=== PATIENT | male | born 1955 | race Caucasian/White ===

== ENCOUNTER 2022-07-18 12:36 | Inpatient (IN) ==
--- NOTE | 2022-07-18 12:57 | Emergency Department Note ---
Impression & Plan GI bleed, Tobacco use, Abdominal pain, Anemia ED Provider Note NAME: MONIK LEON AGE: 66 SEX: M : 1955 ARRIVES VIA: Ambulance INFORMANT: Patient, ED PROVIDER(S): Yonis Serrano MD CHIEF COMPLAINT: Shortness of breath, abdominal pain MEDICAL DECISION MAKING: Patient presented due to concern for dark stools weakness abdominal pain and shortness of breath. Blood work is obtained along with an EKG troponin chest x-ray CT of the abdomen pelvis [place] breathing treatment. Patient's blood work showed a normal white count mild anemia with a hemoglobin of 12. The patient's platelet count is unremarkable. INR unremarkable. Kidney function is unremarkable. The patient does have mild elevation in bilirubin at 1.1. Lipase is normal. COVID-negative. Chest x-ray is negative. CT abdomen pelvis shows mild bladder wall thickening. Patient did have a urinalysis that was pending. No diverticulitis. The patient does have some bladder stones. Patient does have an infrarenal abdominal aortic aneurysm approximate 4.2 cm. Patient's stool is heme positive. Given the patient's GI bleeding with associated poor outpatient care drinking history as well as smoking use do believe the patient would benefit from inpatient treatment at this time. I did speak with the on-call medicine service Mitzi Razo PA-C and the patient was admitted by Dr. Mccormick Prior /Outside records reviewed: None Differential diagnosis: Reactive airway disease, pneumonia, pneumothorax, COPD, CHF, infections, cardiac ischemia, pulmonary embolism, musculoskeletal, gastrointestinal, as well as other pathologies. Diverticulosis, AVM, coagulopathy, colitis, inflammatory bowel disease, malignancy, Tomeka-Tse tear, esophagitis, peptic ulcer disease, variceal bleed, gastritis, epistaxis, fissure, hemorrhoids, as well as other pathologies. Diagnostics, as interpreted by me: ECG: None Cardiac monitoring: An order was placed for continuous cardiac monitoring. The monitor shows a rate of 77 with sinus rhythm. Patient was placed on pulse oximetry Medical decision rules: None Imaging studies: See below HPI: Patient presents with the above symptoms and states he has had progressively worsening shortness of breath with associated productive cough. Patient does smoke a cigar in the morning and evening. The patient has not also noticed weight loss over the last several months approximately 30 pounds. The patient has no dark stools. The patient states that he had a prior colonoscopy about 15 years ago and did have polyps removed at that time. The patient does not take any blood thinning medications. Patient does drink several days a week and when he does he drinks maybe 3-4 drinks. Patient denies any chest pains. Patient does not have any prior history of IBD or diverticulitis. Patient den ies any associated nausea or vomiting. Patient does not take anything for symptoms at home. Patient denies any additional exacerbating remitting factors PAST MEDICAL HISTORY: See Below PAST SURGICAL HISTORY: See Below SOCIAL HISTORY: See Below HOME MEDICATIONS: See Below ALLERGIES: See Below VITALS: See Below PHYSICAL EXAMINATION: GENERAL: NAD, wearing a mask, non-toxic. Thin in appearance. EYE EXAM: Normal conjunctiva. PERRL, no anisocoria and EOM's grossly intact w/o pain. NECK: Supple, no nuchal rigidity, no adenopathy, non-tender. No signs of meningismus. FROM of the neck with good chin to chest and neck extension. No stridor. LUNGS: Clear to auscultation. Normal chest wall mechanics. HEART: NSR, no MRG. ABDOMEN: Abdomen soft, epigastric pain, no lower abdominal pain, normo-active bowel sounds, no masses, no rebound or guarding. BACK: No CVA TTP. SKIN: No rashes and no bruising. Rectal exam, dark stool, heme positive. No bright red blood per UPPER EXTREMITIES: Upper extremities are grossly normal. LOWER EXTREMITIES: Grossly normal, no edema. Negative Homans' sign bilaterally. NEURO EXAM: A&O x3, cranial nerves II-XII grossly intact, normal speech, moves all 4 extremities. Past Med/Surg History Medical History (Updated 07/19/22 @ 23:03 by Yonis Serrano MD) Tobacco use Vitamin D deficiency Surgical History (Updated 07/18/22 @ 17:35 by Aishwarya Razo PA-C) H/O: vasectomy History of colonoscopy History of elbow surgery Family History (Updated 07/18/22 @ 17:37 by Aishwarya Razo PA-C) Brother Heart disease Father Heart disease Other Breast cancer Social History (Updated 07/18/22 @ 17:35 by Aishwarya Razo PA-C) Smoking Status: Current some day smoker Tobacco Type: Cigars Cigarettes Per Day: 1-2 a day; Smoking End Date: smoked 1.5ppd x 40 years. Quit 10 years ago. Current smokes 1-2 cigars day; Second Hand Exposure: No; Do You Dip or Chew Tobacco: No; Hx Alcohol Use: Yes (2-3) Alcohol type: beer Alcohol Intake Frequency: 2-3 x/Week Hx Substance Use: Yes Non-Prescribed Medications: Marijuana Preferred Language: Argentine Communication Ability: Effective Packer And Carry Out Required: No Beliefs That Will Affect Care: None Current Living Situation: Alone Feels Safe at Home: Yes Safety Concerns: Feels Safe At This Time Assistive Devices: Cane and Glasses Allergies Allergies Allergy/AdvReac Type Severity Reaction Status Date / Time No Known Allergies Allergy Verified 07/18/22 16:05 Home Meds Home Medications Medication Instructions Recorded Confirmed cholecalciferol (vitamin D3) 25 25 mcg PO DAILY 07/18/22 07/18/22 mcg (1,000 unit) capsule (Vitamin D3) Results & Data (ED) Vital Signs Vital Signs - 24 hr 07/18/22 12:51 Temperature 37.2 C Temperature Source Oral Pulse Rate 76 Respiratory Rate 20 Respiratory Effort / Characteristics Non-Labored Respiratory Depth Normal Blood Pressure 151/89 H Blood Pressure Mean 109 Pulse Oximetry 99 Oxygen Delivery Method Room Air Sepsis Recent Fever Within 48 Hours No Sepsis New/Unexplained Change in Mental Status No Sepsis Action Taken by Nursing No Action Required Home Medications Current Medication List: was personally reviewed by me Laboratory Data Attestation: I reviewed the patient's lab results. 07/18/22 13:00 07/18/22 13:00 Lab Results 07/18/22 07/18/22 07/18/22 Range/Units 13:00 13:00 13:00 WBC 5.88 (4.8-10.8) K/ul RBC 3.73 L (4.63-6.08) M/uL Hgb 12.2 L (14.0-18.0) g/dl Hct 34.8 L (40.1-51.0) % MCV 93.3 (80.0-100.0) fL MCH 32.7 (25.0-34.0) pg MCHC 35.1 (32.0-36.0) g/dL RDW Std Deviation 52.8 H (36.4-46.3) fL RDW Coeff of Breonna 15.4 H (11.5-14.5) % Plt Count 246 (130-400) K/uL MPV 10.1 (9.4-12.4) fL Immature Gran % (Auto) 0.7 % Neut % (Auto) 75.2 % Lymph % (Auto) 13.6 % [place] % (Auto) 10.0 % Eos % (Auto) 0.0 % Baso % (Auto) 0.5 % Neut # (Auto) 4.42 (1.4-6.5) K/uL Lymph # (Auto) 0.80 L (1.2-3.4) K/uL [place] # (Auto) 0.59 (0.24-0.82) K/uL Eos # (Auto) 0.00 (0-0.50) K/uL Baso # (Auto) 0.03 (0-0.2) K/uL Immature Gran # (Auto) 0.04 H (0.00-0.02) K/uL PT 10.6 (9.0-12.0) Seconds INR 1.0 (0.9-1.1) APTT 31.1 H (21.0-31.0) Seconds PTT Ratio 1.1 Sodium 136 (136-145) mmol/L Potassium 3.3 L (3.5-5.1) mmol/L Chloride 94 L (98-107) mmol/L Carbon Dioxide 27 (21-32) mmol/L Anion Gap 15 H (3-11) BUN 4 L (6-23) mg/dl Creatinine 0.51 L (0.6-1.4) mg/dl Est Cr Clr Drug Dosing Not Reportable Est GFR ( Amer) 128.9 ml/min Est GFR (Non-Af Amer) 111.2 ml/min BUN/Creatinine Ratio 7.8 L (10-20) Glucose 156 H (70-99(Fasting)) mg/dl Calcium 8.7 (8.5-10.1) mg/dl Magnesium (1.7-2.4) mg/dl Iron (35-175) mcg/dl Transferrin (200-360) mg/dl Ferritin (8-388) ng/ml Total Bilirubin 1.1 H (0.2-1.0) mg/dl AST 29 (13-39) U/L ALT 19 (7-52) U/L Alkaline Phosphatase 87 (34-104) U/L Troponin I High Sens 7.8 (0-20) pg/ml Total Protein 6.5 (6.0-8.3) gm/dl Albumin 3.2 L (3.4-5.0) gm/dl Globulin 3.3 (2.5-4.0) gm/dl Albumin/Globulin Ratio 1.0 (0.9-2) Lipase 5 L (11-82) U/L Prostate Specific Ag (0-4) ng/ml Free PSA (0-2.0) ng/ml % Free PSA % Vitamin B12 (180-914) pg/ml Folate (>5.38) ng/ml Urine Color Urine Appearance (Clear) Urine pH (4.5-7.5) Ur Specific [place] (1.000-1.030) Urine Protein (Negative) Urine Glucose (UA) (Negative) Urine Ketones (Negative) Urine Blood (Negative) Urine Nitrite (Negative) Urine Bilirubin (Negative) Urine Urobilinogen (Negative) Ur Leukocyte Esterase (Negative) Urine WBC (Auto) (0-5) /hpf Urine RBC (Auto) (0-4) /hpf U Hyaline Cast (Auto) (0-5) /lpf U Epithel Cells (Auto) (0-5) /lpf Urine Bacteria (Auto) (Negative) Urine Mucus (None Prsent) Urine Yeast SARS-CoV-2, RNA, NAAT (NEGATIVE) 07/18/22 07/18/22 07/18/22 Range/Units 13:00 13:00 13:00 WBC (4.8-10.8) K/ul RBC (4.63-6.08) M/uL Hgb (14.0-18.0) g/dl Hct (40.1-51.0) % MCV (80.0-100.0) fL MCH (25.0-34.0) pg MCHC (32.0-36.0) g/dL RDW Std Deviation (36.4-46.3) fL RDW Coeff of Breonna (11.5-14.5) % Plt Count (130-400) K/uL MPV (9.4-12.4) fL Immature Gran % (Auto) % Neut % (Auto) % Lymph % (Auto) % [place] % (Auto) % Eos % (Auto) % Baso % (Auto) % Neut # (Auto) (1.4-6.5) K/uL Lymph # (Auto) (1.2-3.4) K/uL [place] # (Auto) (0.24-0.82) K/uL Eos # (Auto) (0-0.50) K/uL Baso # (Auto) (0-0.2) K/uL Immature Gran # (Auto) (0.00-0.02) K/uL PT (9.0-12.0) Seconds INR (0.9-1.1) APTT (21.0-31.0) Seconds PTT Ratio Sodium (136-145) mmol/L Potassium (3.5-5.1) mmol/L Chloride (98-107) mmol/L Carbon Dioxide (21-32) mmol/L Anion Gap (3-11) BUN (6-23) mg/dl Creatinine (0.6-1.4) mg/dl Est Cr Clr Drug Dosing Est GFR ( Amer) ml/min Est GFR (Non-Af Amer) ml/min BUN/Creatinine Ratio (10-20) Glucose (70-99(Fasting)) mg/dl Calcium (8.5-10.1) mg/dl Magnesium 1.5 L (1.7-2.4) mg/dl Iron 142 (35-175) mcg/dl Transferrin 142 L (200-360) mg/dl Ferritin 130.5 (8-388) ng/ml Total Bilirubin (0.2-1.0) mg/dl AST (13-39) U/L ALT (7-52) U/L Alkaline Phosphatase (34-104) U/L Troponin I High Sens (0-20) pg/ml Total Protein (6.0-8.3) gm/dl Albumin (3.4-5.0) gm/dl Globulin (2.5-4.0) gm/dl Albumin/Globulin Ratio (0.9-2) Lipase (11-82) U/L Prostate Specific Ag (0-4) ng/ml Free PSA (0-2.0) ng/ml % Free PSA % Vitamin B12 655 (180-914) pg/ml Folate 4.01 L (>5.38) ng/ml Urine Color Urine Appearance (Clear) Urine pH (4.5-7.5) Ur Specific [place] (1.000-1.030) Urine Protein (Negative) Urine Glucose (UA) (Negative) Urine Ketones (Negative) Urine Blood (Negative) Urine Nitrite (Negative) Urine Bilirubin (Negative) Urine Urobilinogen (Negative) Ur Leukocyte Esterase (Negative) Urine WBC (Auto) (0-5) /hpf Urine RBC (Auto) (0-4) /hpf U Hyaline Cast (Auto) (0-5) /lpf U Epithel Cells (Auto) (0-5) /lpf Urine Bacteria (Auto) (Negative) Urine Mucus (None Prsent) Urine Yeast SARS-CoV-2, RNA, NAAT (NEGATIVE) 07/18/22 07/18/22 07/18/22 Range/Units 13:45 14:13 16:00 WBC (4.8-10.8) K/ul RBC (4.63-6.08) M/uL Hgb (14.0-18.0) g/dl Hct (40.1-51.0) % MCV (80.0-100.0) fL MCH (25.0-34.0) pg MCHC (32.0-36.0) g/dL RDW Std Deviation (36.4-46.3) fL RDW Coeff of Breonna (11.5-14.5) % Plt Count (130-400) K/uL MPV (9.4-12.4) fL Immature Gran % (Auto) % Neut % (Auto) % Lymph % (Auto) % [place] % (Auto) % Eos % (Auto) % Baso % (Auto) % Neut # (Auto) (1.4-6.5) K/uL Lymph # (Auto) (1.2-3.4) K/uL [place] # (Auto) (0.24-0.82) K/uL Eos # (Auto) (0-0.50) K/uL Baso # (Auto) (0-0.2) K/uL Immature Gran # (Auto) (0.00-0.02) K/uL PT (9.0-12.0) Seconds INR (0.9-1.1) APTT (21.0-31.0) Seconds PTT Ratio Sodium (136-145) mmol/L Potassium (3.5-5.1) mmol/L Chloride (98-107) mmol/L Carbon Dioxide (21-32) mmol/L Anion Gap (3-11) BUN (6-23) mg/dl Creatinine (0.6-1.4) mg/dl Est Cr Clr Drug Dosing Est GFR ( Amer) ml/min Est GFR (Non-Af Amer) ml/min BUN/Creatinine Ratio (10-20) Glucose (70-99(Fasting)) mg/dl Calcium (8.5-10.1) mg/dl Magnesium (1.7-2.4) mg/dl Iron (35-175) mcg/dl Transferrin (200-360) mg/dl Ferritin (8-388) ng/ml Total Bilirubin (0.2-1.0) mg/dl AST (13-39) U/L ALT (7-52) U/L Alkaline Phosphatase (34-104) U/L Troponin I High Sens (0-20) pg/ml Total Protein (6.0-8.3) gm/dl Albumin (3.4-5.0) gm/dl Globulin (2.5-4.0) gm/dl Albumin/Globulin Ratio (0.9-2) Lipase (11-82) U/L Prostate Specific Ag 0.489 (0-4) ng/ml Free PSA 0.08 (0-2.0) ng/ml % Free PSA 16.4 % Vitamin B12 (180-914) pg/ml Folate (>5.38) ng/ml Urine Color Yellow Urine Appearance Cloudy A (Clear) Urine pH 6.5 (4.5-7.5) Ur Specific [place] > 1.045 H (1.000-1.030) Urine Protein 1+ H (Negative) Urine Glucose (UA) Negative (Negative) Urine Ketones 2+ H (Negative) Urine Blood 1+ H (Negative) Urine Nitrite Negative (Negative) Urine Bilirubin Negative (Negative) Urine Urobilinogen Negative (Negative) Ur Leukocyte Esterase 1+ H (Negative) Urine WBC (Auto) >30 H (0-5) /hpf Urine RBC (Auto) 5-10 H (0-4) /hpf U Hyaline Cast (Auto) 10-30 H (0-5) /lpf U Epithel Cells (Auto) 10-20 H (0-5) /lpf Urine Bacteria (Auto) 4+ H (Negative) Urine Mucus Present A (None Prsent) Urine Yeast Not Reportable SARS-CoV-2, RNA, NAAT NEGATIVE (NEGATIVE) Administered Medications Folic Acid (Folic Acid 1 Mg Tab) 1 mg PO QAM [facility] Stop: 08/18/22 08:59 Last Admin: 07/19/22 07:44 Dose: 1 mg Documented By: AMINA Pantoprazole Sodium 40 mg/ (Dextrose) 100 mls @ 20 mls/hr IV Q5H [facility] Stop: 08/17/22 19:34 Last Admin: 07/19/22 21:58 Dose: 8 mg/hr, 20 mls/hr Documented By: [id number] Infusion: 07/19/22 21:22 Dose: 8 mg/hr, 20 mls/hr Documented By: [id number] Admin: 07/19/22 16:22 Dose: 8 mg/hr, 20 mls/hr Documented By: [id number] Infusion: 07/19/22 15:59 Dose: 8 mg/hr, 20 mls/hr Documented By: [id number] Admin: 07/19/22 10:59 Dose: 8 mg/hr, 20 mls/hr Documented By: Infusion: 07/19/22 10:57 Dose: 0 mg/hr, 0 mls/hr Documented By: Admin: 07/19/22 05:57 Dose: 8 mg/hr, 20 mls/hr Documented By: Infusion: 07/19/22 05:56 Dose: 0 mg/hr, 0 mls/hr Documented By: Admin: 07/19/22 01:05 Dose: 8 mg/hr, 20 mls/hr Documented By: Infusion: 07/19/22 01:05 Dose: 8 mg/hr, 20 mls/hr Documented By: Admin: 07/18/22 20:34 Dose: 8 mg/hr, 20 mls/hr Documented By: TREMAINE Ciprofloxacin (Cipro / D5w) 400 mg in 200 mls @ 100 mls/hr IV Q12H [facility]; Protocol Stop: 07/28/22 15:59 Last Infusion: 07/19/22 19:04 Dose: 0 mls/hr Documented By: [id number] Admin: 07/19/22 16:43 Dose: 100 mls/hr Documented By: [id number] Metronidazole (Flagyl) 500 mg in 100 mls @ 100 mls/hr IV Q8 [facility]; Protocol Stop: 07/29/22 13:59 Last Admin: 07/19/22 22:05 Dose: 100 mls/hr Documented By: [id number] Infusion: 07/19/22 14:47 Dose: 0 mls/hr Documented By: Admin: 07/19/22 13:33 Dose: 100 mls/hr Documented By: AMINA Vitamin D (Cholecalciferol 1,000 Units 25 Mcg Tab) 1,000 units PO DAILY [facility] Stop: 08/18/22 08:59 Last Admin: 07/19/22 07:44 Dose: 1,000 units Documented By: AMINA Discontinued Medications Albuterol (Albut/Ipratrop 3mg/0.5mg Neb 3 Ml Vial) 3 ml NEB NOW STA; Protocol Stop: 07/18/22 13:16 Last Admin: 07/18/22 13:44 Dose: 3 ml Documented By: AM Sodium Chloride (Nss 1000ml) 1,000 mls @ 999 mls/hr IV .Q1H1M STA Stop: 07/18/22 14:15 Last Infusion: 07/18/22 14:59 Dose: 0 mls/hr Documented By: Admin: 07/18/22 13:44 Dose: 999 mls/hr Documented By: AM Pantoprazole Sodium 40 mg/ (Syringe) 10 mls @ 5 mls/min IV NOW ONE Stop: 07/18/22 15:49 Last Admin: 07/18/22 17:49 Dose: 5 mls/min Documented By: TREMAINE Piperacillin Sod/Tazobactam (Sod 3.375 gm/ Dextrose) 100 ml in 115 mls @ 230 mls/hr IV NOW STA Stop: 07/18/22 19:19 Last Infusion: 07/18/22 19:49 Dose: 0 mls/hr Documented By: Admin: 07/18/22 19:17 Dose: 230 mls/hr Documented By: TREMAINE Magnesium Sulfate/Dextrose (Magnesium Sulfate / D5w) 1 gm in 100 mls @ 100 mls/hr IV NOW STA Stop: 07/18/22 19:53 Last Infusion: 07/18/22 20:31 Dose: 0 mls/hr Documented By: Admin: 07/18/22 19:28 Dose: 100 mls/hr Documented By: TREMAINE Piperacillin Sod/Tazobactam (Sod 3.375 gm/ Dextrose) 115 mls @ 28.75 mls/hr IV Q8H [facility]; Protocol Stop: 07/19/22 12:00 Last Infusion: 07/19/22 11:02 Dose: 0 mls/hr Documented By: Admin: 07/19/22 07:44 Dose: 28.8 mls/hr Documented By: Infusion: 07/19/22 05:22 Dose: 0 mls/hr Documented By: Admin: 07/19/22 01:23 Dose: 28.8 mls/hr Documented By: YUNIOR Magnesium Sulfate/Dextrose (Magnesium Sulfate / D5w) 1 gm in 100 mls @ 50 mls/hr IV ONE ONE Stop: 07/18/22 21:34 Last Admin: 07/18/22 19:48 Dose: Not Given Documented By: TREMAINE Sodium Chloride (Nss 1000ml) 1,000 mls @ 80 mls/hr IV .[id number] [facility] Stop: 07/19/22 08:04 Last Infusion: 07/19/22 08:07 Dose: 0 mls/hr Documented By: Admin: 07/18/22 20:24 Dose: 80 mls/hr Documented By: TREMAINE Magnesium Sulfate/Dextrose (Magnesium Sulfate / D5w) 1 gm in 100 mls @ 50 mls/hr IV Q2H [facility] Stop: 07/19/22 12:59 Last Infusion: 07/19/22 13:15 Dose: 0 mls/hr Documented By: Admin: 07/19/22 10:56 Dose: 50 mls/hr Documented By: Infusion: 07/19/22 10:56 Dose: 0 mls/hr Documented By: Admin: 07/19/22 08:56 Dose: 50 mls/hr Documented By: AMINA Sodium Phosphate 30 mmol/ (Dextrose) 510 mls @ 88 mls/hr IV ONE ONE Stop: 07/19/22 16:17 Last Infusion: 07/19/22 16:58 Dose: 0 mls/hr Documented By: [id number] Admin: 07/19/22 10:26 Dose: 88 mls/hr Documented By: AMINA Ioversol (Optiray 350 100ml) 84 ml IV ONCE ONE Stop: 07/18/22 14:24 Last Admin: 07/18/22 14:25 Dose: 84 ml Documented By: OLESYA Polyethylene Glycol/Electrolytes (Lavage Solution 4000ml) 16 dose PO ONE ONE Stop: 07/19/22 16:01 Last Admin: 07/19/22 16:46 Dose: 16 dose Documented By: [id number] Potassium Chloride (Potassium Chloride Crtab 20 Meq Tabcr) 40 meq PO NOW STA Stop: 07/18/22 18:54 Last Admin: 07/18/22 19:28 Dose: 40 meq Documented By: MES Potassium Chloride (Potassium Chloride Crtab 20 Meq Tabcr) 20 meq PO ONE ONE Stop: 07/18/22 21:01 Last Admin: 07/19/22 01:04 Dose: Not Given Documented By: YUNIOR Potassium Chloride (Potassium Chloride Crtab 20 Meq Tabcr) 40 meq PO NOW STA Stop: 07/19/22 08:43 Last Admin: 07/19/22 08:56 Dose: 40 meq Documented By: AMINA Imaging Data Radiologist's Impression: Abdomen/Pelvis CT 07/18/22 13:[address] WITH IV CONTRAST CT DOSE: 266.54 mGy.cm HISTORY: Generalized abdominal pain, weight loss, dark stools TECHNIQUE: Multiaxial CT images of the abdomen and pelvis were performed following the use of intravenous contrast. A dose lowering technique was utilized adhering to the principles of ALARA. COMPARISON STUDY: None. FINDINGS: There is calcified granuloma within the right middle lobe. No pneum operitoneum. No pneumatosis. No fractures within the visualized osseous structures. Hepatic steatosis. The gallbladder, pancreas, and adrenal glands unremarkable. Multiple punctate calcified granuloma seen within the spleen. The kidneys enhance normally. No hydronephrosis. The main portal vein is patent. No retroperitoneal lymphadenopathy. Moderate calcified plaque within the aorta and iliac arteries. There is a bilobed infrarenal abdominal aortic aneurysm with a maximal diameter of 4.2 cm. Mild bladder wall thickening. The prostate gland is mildly enlarged. No pelvic lymphadenopathy or pelvic free fluid. Colonic diverticulosis. No evidence for acute diverticulitis. Questional mild circumfer ential thickening throughout the majority the colon. This could be due to underdistention versus a low-grade colitis. Multiple punctate bladder stones are noted. There is a small right posterior bladder diverticulum. IMPRESSION: 1. Mild circumferential thickening throughout the majority of the colon. This could be due to underdistention or a low-grade colitis. 2. Mild bladder wall thickening which could be chronic. Recommend correlation with urinalysis to exclude a cystitis. 3. Colonic diverticulosis. No evidence for acute diverticulitis. 4. Multiple punctate bladder stones. 5. Hepatic steatosis. 6. Bilobed infrarenal abdominal aortic aneurysm measuring up to 4.2 cm in diameter. ACT 112: Negative or not required by law. Electronically signed by: Kendell Emmanuel M.D. 07/18/2022 2:46 PM Chest X-Ray 07/18/22 13:15 XR chest 1V portable CLINICAL HISTORY: sob TECHNIQUE: Single frontal radiograph of the chest was obtained. Comparison: None available at the time of this dictation. FINDINGS: No lines and tubes are seen. The cardiomediastinal silhouette is normal. The lungs are clear. No evidence of pleural effusion or pneumothorax. IMPRESSION: No acute abnormalities and in particular no evidence of pneumonia. ACT 112: Negative or not required by law. Electronically signed by: Reuben Hubbard M.D. 07/18/2022 1:53 PM Discharge Plan Visit Data Chief Complaint: Abdominal Pain Stated Complaint: AB PAIN, SOB ED Provider: Yonis Serrano Discharge Problem: GI bleed, Tobacco use, Abdominal pain, Anemia Patient Disposition: Admitted As Inpatient Discharge Instructions Interventions: ED Discharge Assessment Last Done: 07/18/22 19:34
[2022-07-18] MEDS ORDERED: SODIUM CHLORIDE 0.9% 1000ML 1,000 ML IV STA (13:15)
[2022-07-18] MEDS ORDERED: ALBUT/IPRATROP 3MG/0.5MG NEB 3 ML VIAL NEB STA (13:15)
[2022-07-18 13:32] LABS: Basophils # (auto) 0.03 K/uL (0-0.2); Basophils % (auto) 0.5 %; Hematocrit (blood only) 34.8 % (40.1-51.0); Hemoglobin 12.2 g/dl (14.0-18.0); Immature Granulocytes # (auto) 0.04 K/uL (0.00-0.02); Immature Granulocytes % (auto) 0.7 %; Lymphocytes % (auto) 13.6 %; Mean Corpuscular Hemoglobin 32.7 pg (25.0-34.0); Mean Corpuscular Hgb Conc 35.1 g/dL (32.0-36.0); Mean Corpuscular Volume 93.3 fL (80.0-100.0); Mean Platelet Volume 10.1 fL (9.4-12.4); Monocytes # (auto) 0.59 K/uL (0.24-0.82); Neutrophils # (auto) 4.42 K/uL (1.4-6.5); Neutrophils % (auto) 75.2 %; Platelet Count 246 K/uL (130-400); RDW Coefficient of Variation 15.4 % (11.5-14.5); RDW Standard Deviation 52.8 fL (36.4-46.3); Red Blood Count 3.73 M/uL (4.63-6.08); White Blood Count 5.88 K/ul (4.8-10.8)
[2022-07-18 13:52] LABS: Alanine Aminotransferase 19 U/L (7-52); Albumin Level 3.2 gm/dl (3.4-5.0); Alkaline Phosphatase 87 U/L (34-104); Anion Gap 15 (3-11); Aspartate Aminotransferase 29 U/L (13-39); BUN Creatinine Ratio 7.8 (10-20); Bilirubin,Total 1.1 mg/dl (0.2-1.0); Blood Urea Nitrogen 4 mg/dl (6-23); Calcium 8.7 mg/dl (8.5-10.1); Carbon Dioxide 27 mmol/L (21-32); Chloride 94 mmol/L (98-107); Est GFR (African American) 128.9 ml/min; Est GFR (Non-African American) 111.2 ml/min; Globulin 3.3 gm/dl (2.5-4.0); Glucose 156 mg/dl (70-99(Fasting)); Lipase 5 U/L (11-82); Potassium 3.3 mmol/L (3.5-5.1); Sodium 136 mmol/L (136-145); Total Protein 6.5 gm/dl (6.0-8.3); Troponin I High Sensitivity 7.8 pg/ml (0-20)
--- NOTE | 2022-07-18 13:55 | XRay Report ---
XR chest 1V portable CLINICAL HISTORY: sob TECHNIQUE: Single frontal radiograph of the chest was obtained. Comparison: None available at the time of this dictation. FINDINGS: No lines and tubes are seen. The cardiomediastinal silhouette is normal. The lungs are clear. No evid ence of pleural effusion or pneumothorax. IMPRESSION: No acute abnormalities and in particular no evidence of pneumonia. ACT 112: Negative or not required by law. Electronically signed by: Reuben Hubbard M.D. 07/18/2022 1:53 PM
[2022-07-18 14:00] LABS: Partial Thromboplastin Ratio 1.1; Partial Thromboplastin Time 31.1 Seconds (21.0-31.0); Prothrombin Time 10.6 Seconds (9.0-12.0)
[2022-07-18] MEDS ORDERED: OPTIRAY 350 100ml IV ONE (14:23)
--- NOTE | 2022-07-18 14:47 | CT Scan Report ---
ABDOMEN AND PELVIS CT WITH IV CONTRAST CT DOSE: 266.54 mGy.cm HISTORY: Generalized abdominal pain, weight loss, dark stools TECHNIQUE: Multiaxial CT images of the abdomen and pelvis were performed following the use of intrave nous contrast. A dose lowering technique was utilized adhering to the principles of ALARA. COMPARISON STUDY: None. FINDINGS: There is calcified granuloma within the right middle lobe. No pneumoperitoneum. No pneumato sis. No fractures within the visualized osseous structures. Hepatic steatosis. The gallbladder, pancr eas, and adrenal glands unremarkable. Multiple punctate calcified granuloma seen within the spleen. T he kidneys enhance normally. No hydronephrosis. The main portal vein is patent. No retroperitoneal ly mphadenopathy. Moderate calcified plaque within the aorta and iliac arteries. There is a bilobed infr arenal abdominal aortic aneurysm with a maximal diameter of 4.2 cm. Mild bladder wall thickening. The prostate gland is mildly enlarged. No pelvic lymphadenopathy or pelvic free fluid. Colonic diverticu losis. No evidence for acute diverticulitis. Questional mild circumferential thickening throughout th e majority the colon. This could be due to underdistention versus a low-grade colitis. Multiple punct ate bladder stones are noted. There is a small right posterior bladder diverticulum. IMPRESSION: 1. Mild circumferential thickening throughout the majority of the colon. This could be due to underdi stention or a low-grade colitis. 2. Mild bladder wall thickening which could be chronic. Recommend correlation with urinalysis to excl ude a cystitis. 3. Colonic diverticulosis. No evidence for acute diverticulitis. 4. Multiple punctate bladder stones. 5. Hepatic steatosis. 6. Bilobed infrarenal abdominal aortic aneurysm measuring up to 4.2 cm in diameter. ACT 112: Negative or not required by law. Electronically signed by: Kendell Emmanuel M.D. 07/18/2022 2:46 PM
[2022-07-18] MEDS ORDERED: PANTOprazole 40 MG in SYRINGE 0 ML IV ONE (15:48)
[2022-07-18 16:16] LABS: Appearance Urine Cloudy (Clear); Bacteria Urine Automated 4+ (Negative); Bilirubin Urine Negative (Negative); Blood Urine 1+ (Negative); Color Urine Yellow; Glucose Urine UA Negative (Negative); Ketones Urine 2+ (Negative); Leukocyte Esterase Urine 1+ (Negative); Nitrite Urine Negative (Negative); Protein Urine 1+ (Negative); Specific Gravity Urine > 1.045 (1.000-1.030); Urobilinogen Urine Negative (Negative); WBC Urine Automated >30 /hpf (0-5); pH Urine 6.5 (4.5-7.5)
[2022-07-18 16:31] LABS: Mucus Urine Present (None Prsent)
--- NOTE | 2022-07-18 17:05 | History & Physical Report ---
Date of Service July 18, 2022 Assessment & Plan (1) GI bleed: (2) Abdominal pain: (3) Anemia: Plan: Possible Colitis Patient is 66-year-old male with PMH vitamin D deficiency, tobacco use presented to ER with complaint of melena x 6 months. Previously followed with [facility]. Has not been seen for over 2 years. Patient reports having nausea and vomiting 1-2 times daily for the past 6 to 8 months. Reports intermittent loose bowel movements for several months. WBC: 5.8. H/H: 12/34. (Hgb: 15 [facility] 2019 [facility] CT Abd/pelvis: 1. Mild circumferential thickening throughout the majority of the colon. This co uld be due to underdistention or a low-grade colitis. 2. Mild bladder wall thickening which could be chronic. Recommend correlation with urinalysis to exclude a cystitis. 3. Colonic diverticulosis. No evidence for acute diverticulitis. 4. Multiple punctate bladder stones. 5. Hepatic steatosis. 6. Bilobed infrarenal abdominal aortic aneurysm measuring up to 4.2 cm in diameter. + Hemoccult in ER In ER was given Protonix IV, 1L NSS Type and cross Monitor H&H N.p.o. IVF PPI drip Zosyn Stool culture C. difficile if would have recurrent diarrhea GI consult (4) Severe protein-calorie malnutrition: Plan: Reported 30 pound weight loss in past several months Obtain CT chest to rule out underlying mass/malignancy CT Chest: Emphysema. There is no airspace consolidation or pleural effusion. No lymphadenopathy is identified. There is aneurysmal dilatation of the ascending thoracic aorta which measures up to 4.3 cm. Hepatic steatosis. Dietitian consult (5) UTI (urinary tract infection): Plan: UA suggestive of UTI. Patient reported dysuria and dark-colored urine Continue Zosyn (6) Hypokalemia: Plan: K: 3.3 Replace and monitor (7) Hypomagnesemia: Plan: Magnesium: 1.5 Replace and monitor (8) Cough: Plan: SOB. Chronic cough. History tobacco use Likely underlying undiagnosed COPD CT chest with noted emphysema In ER given albuterol neb Albuterol nebs prn (9) Abnormal CT of the abdomen: Plan: CT abdomen pelvis: Bilobed infrarenal abdominal aortic aneurysm measuring up to 4.2 cm in diameter. Will need further outpatient follow-up (10) Tobacco use: Plan: Previous heavy cigarette smoker. Current cigar use Smoking cessation encouraged Denies nicotine patch DVT Prophylaxis SCDs DNR/DNI as per discussion with pt Follows with [facility] for routine care Pt was seen and care coordinated with Dr Mccormick. See addendum I spent a total of 76 minutes reviewing notes, outpatient records, labs, medication, coordinating, documenting and providing care for this patient excluding time spent in the performance of separately billed services. History of Present Illness Chief Complaint: Melena, abdominal pain Primary Care Provider: [facility] Patient is 66-year-old male with PMH vitamin D deficiency, tobacco use presented to ER with complaint of melena x 6 months. Previously followed with [facility]. Has not been seen for over 2 years. Patient reports having nausea and vomiting 1-2 times daily for the past 6 to 8 months. Reports intermittent loose bowel movements for several months. Describes stool coloration as dark black "like oil". Complains of mid and left-sided abdominal pain for the past 10 weeks. Not eating and drinking much. Has noticed losing weight and close fitting looser. Does not weigh himself regularly. He reports the last time he recalls being weighed he was approximately 140 pounds, is unsure how long ago that was. Patient reports has had exertional shortness of breath for the past 2 years. Reports chronic productive cough, unsure of sputum coloration. Reports 2 months ago was around someone that had URI symptoms and had contact with COVID-positive person. Patient states since that time he feels he has had increased cough and has noted it been green sputum. Patient never had COVID-19 test completed. States urine dark color and has some dysuria. Takes 200mg ibuprofen daily a few times a week. Previous cigarette smoker. 1.5 packs/day x 40 years. Quit smoking cigarettes 10 years ago. Smokes 1 to 2 cigars daily. Smokes marijuana daily. Drinks 2 to 3 cans of beer 1-2 times a week. Reports history of colonoscopy 15 to 20 years ago at [facility]. States polyps were found and removed and was told had hemorrhoids. Denies fever/chills, diaphoresis, hematemesis, hematochezia, TA, dizziness, syncope, vision changes, neck pain, CP, orthopnea, palpitations, hemoptysis, sore throat, choking, otalgia, rhinorrhea, paresthesias, extremity weakness, extremity edema, rashes. Allergies Allergy/AdvReac Type Severity Reaction Status Date / Time No Known Allergies Allergy Verified 07/18/22 16:05 Home Medications Medication Instructions Recorded Confirmed Type cholecalciferol (vitamin D3) 25 25 mcg PO DAILY 07/18/22 07/18/22 History mcg (1,000 unit) capsule (Vitamin D3) Past Med/Surg History Medical History (Updated 07/18/22 @ 21:40 by Aishwarya Razo PA-C) Tobacco use Vitamin D deficiency Surgical History (Updated 07/18/22 @ 17:35 by Aishwarya Razo PA-C) H/O: vasectomy History of colonoscopy History of elbow surgery Family History (Updated 07/18/22 @ 17:37 by Aishwarya Razo PA-C) Brother Heart disease Father Heart disease Other Breast cancer Social History (Updated 07/18/22 @ 17:35 by Aishwarya Razo PA-C) Smoking Status: Current some day smoker Tobacco Type: Cigars Cigarettes Per Day: 1-2 a day; Smoking End Date: smoked 1.5ppd x 40 years. Quit 10 years ago. Current smokes 1-2 cigars day; Second Hand Exposure: No; Do You Dip or Chew Tobacco: No; Hx Alcohol Use: Yes (2-3) Alcohol type: beer Alcohol Intake Frequency: 2-3 x/Week Hx Substance Use: Yes Non-Prescribed Medications: Marijuana Preferred Language: Sinhala Communication Ability: Effective Knockdown Worker Required: No Beliefs That Will Affect Care: None Current Living Situation: Alone Feels Safe at Home: Yes Safety Concerns: Feels Safe At This Time Assistive Devices: Cane, Denture - Upper, Denture - Lower, Glasses and Hearing Aid - Bilateral Review of Systems Review of Systems: All systems reviewed & are unremarkable except as noted in HPI & below Physical Exam Physical Exam: General: no acute distress, chronic ill appearing, thin male, appears older than stated age Head: normocephalic, atraumatic Eyes: conjunctiva non-injected, anicteric ENT: normal inspection external ears, nose, mucous membranes mildly dry Neck: supple, trachea midline Lungs: +cough, no respiratory distress, +diminished breath sounds throughout no wheezing/rhonchi/rales CV: RRR, no murmur, no pretibial edema Abd: normal BS, soft, +tender to palpation periumbilical and LLQ without rebound or guarding Ext: no cyanosis, no calf tenderness Neuro: A&O x 3, no focal deficits noted, normal affect Skin: warm, dry Results & Data Results & Data ([facility]) Vital Signs (Past 12 Hours) Vital Signs Temp Pulse Pulse Resp BP BP Pulse Ox 07/18/22 14:48 79 20 128/91 98 07/18/22 12:51 37.2 C 76 20 151/89 H 99 O2 Del Method 07/18/22 14:48 Room Air 07/18/22 12:51 Room Air Laboratory Results Short CBC 07/18/22 Range/Units 13:00 WBC 5.88 (4.8-10.8) K/ul Hgb 12.2 L (14.0-18.0) g/dl Hct 34.8 L (40.1-51.0) % Plt Count 246 (130-400) K/uL BMP 07/18/22 13:00 Sodium 136 Potassium 3.3 L Chloride 94 L Carbon Dioxide 27 BUN 4 L Creatinine 0.51 L Glucose 156 H Calcium 8.7 Liver Function 07/18/22 Range/Units 13:00 Total Bilirubin 1.1 H (0.2-1.0) mg/dl AST 29 (13-39) U/L ALT 19 (7-52) U/L Alkaline Phosphatase 87 (34-104) U/L Albumin 3.2 L (3.4-5.0) gm/dl Urine 07/18/22 Range/Units 16:00 Urine Color Yellow Urine Appearance Cloudy A (Clear) Urine pH 6.5 (4.5-7.5) Ur Specific Malcom > 1.045 H (1.000-1.030) Urine Protein 1+ H (Negative) Urine Glucose (UA) Negative (Negative) Diagnostic Findings Abdomen/Pelvis CT 07/18/22 13:[address] WITH IV CONTRAST CT DOSE: 266.54 mGy.cm HISTORY: Generalized abdominal pain, weight loss, dark stools TECHNIQUE: Multiaxial CT images of the abdomen and pelvis were performed following the use of intravenous contrast. A dose lowering technique was utilized adhering to the principles of ALARA. COMPARISON STUDY: None. FINDINGS: There is calcified granuloma within the right middle lobe. No pneumoperitoneum. No pneumatosis. No fractures within the visualized osseous structures. Hepatic steatosis. The gallbladder, pancreas, and adrenal glands unremarkable. Multiple punctate calcified granuloma seen within the spleen. The kidneys enhance normally. No hydronephrosis. The main portal vein is patent. No retroperitoneal lymphadenopathy. Moderate calcified plaque within the aorta and iliac arteries. There is a bilobed infrarenal abdominal aortic aneurysm with a maximal diameter of 4.2 cm. Mild bladder wall thickening. The prostate gland is mildly enlarged. No pelvic lymphadenopathy or pelvic free fluid. Colonic diverticulosis. No evidence for acute diverticulitis. Questional mild circumferential thickening throughout the majority the colon. This could be due to underdistention versus a low-grade colitis. Multiple punctate bladder stones are noted. There is a small right posterior bladder diverticulum. IMPRESSION: 1. Mild circumferential thickening throughout the majority of the colon. This could be due to underdistention or a low-grade colitis. 2. Mild bladder wall thickening which could be chronic. Recommend correlation with urinalysis to exclude a cystitis. 3. Colonic diverticulosis. No evidence for acute diverticulitis. 4. Multiple punctate bladder stones. 5. Hepatic steatosis. 6. Bilobed infrarenal abdominal aortic aneurysm measuring up to 4.2 cm in diameter. ACT 112: Negative or not required by law. Electronically signed by: Kendell Emmanuel M.D. 07/18/2022 2:46 PM Chest X-Ray 07/18/22 13:15 XR chest 1V portable CLINICAL HISTORY: sob TECHNIQUE: Single frontal radiograph of the chest was obtained. Comparison: None available at the time of this dictation. FINDINGS: No lines and tubes are seen. The cardiomediastinal silhouette is normal. The lungs are clear. No evidence of pleural effusion or pneumothorax. IMPRESSION: No acute abnormalities and in particular no evidence of pneumonia. ACT 112: Negative or not required by law. Electronically signed by: Reuben Hubbard M.D. 07/18/2022 1:[address] 07/18/22 19:35 CT SCAN OF THE CHEST WITHOUT IV CONTRAST CLINICAL HISTORY: Dyspnea. Generalized abdominal pain COMPARISON STUDY: Chest x-ray dated 07/18/2022. TECHNIQUE: CT scan of the thorax was performed from the thoracic inlet to the upper abdomen. Images are reviewed in the axial, sagittal, and coronal planes. IV contrast was not administered for this examination as per the referring clinician. A dose lowering technique was utilized adhering to the principles of ALARA. CT DOSE: 215.38 mGy.cm FINDINGS: Thyroid: Normal in size and heterogeneous in attenuation. Thoracic aorta: There is atherosclerotic calcification of the thoracic aorta. There is mild aneurysmal dilatation of the ascending thoracic aorta which measures up to 4.3 cm. The remainder of the thoracic aorta is normal in caliber, and the arch demonstrates standard 3-vessel anatomy. Heart: The heart is normal in size and without pericardial effusion. The coronary arteries are densely calcified. Lungs and pleural spaces: There is moderate emphysema. No air space consolidation typical for pneumonia or pleural effusion is identified. There are scattered calcified granulomas. The trachea and central airways appear clear. Foci of parenchymal scarring are seen throughout both lungs. Dependent scarring/atelectasis is noted at the lung bases. Mediastinum: There a re calcified mediastinal lymph nodes. No mediastinal adenopathy is seen. Lynnette: There are calcified hilar nodes. Note that the lynnette are not well assessed without IV contrast. Axillae: There is no axillary lymphadenopathy. Upper abdomen: The liver is steatotic. Excreted IV contrast is seen within the renal collecting systems. There are calcified splenic granulomas. Skeletal structures: The skeletal structures are osteopenic. No lytic or blastic bony lesions are seen. Soft tissues: The patient is cachectic. IMPRESSION: 1. Emphysema. 2. There is no airspace consolidation or pleural effusion. 3. No lymphadenopathy is identified. 4. There is aneurysmal dilatation of the ascending thoracic aorta which measures up to 4.3 cm. 5. Hepatic steatosis. 6. Additional findings as above. ACT 112: Negative or not required by law. Electronically signed by: Stephen Traylor M.D. 07/18/2022 8:24 PM Code Status & VTE Plan VTE Prophylaxis Plan VTE Prophylaxis will be ordered: Yes Supervising Physician Co-Signing Physician Notes Patient is a 66-year-old man with tobacco use, marijuana use who does not regularly see physicians presenting with dark stool for several months. He reports this is intermittent but has been consistent in the last couple of weeks. He has a 35 pound weight loss reported in the last 2 months. He reports early satiety after taking 2 bites of food. He has frequent vomiting on a daily basis and intermittent loose bowel movements. He also reports a left-sided lower abdominal pain. He is very anxious and reports being scared telling me he does not want to . He is seen at the [place] for care who sent him over today. He reports no medical problems stating he only takes vitamin D. On physical exam he is a cachectic appearing man who is disheveled with poor dentition. He is in no acute distress. He is not working to breathe and has normal speech and normal mentation. He has no gross focal neurologic deficits. Cardiac exam reveals S1-S2 heard with no murmurs gallops or rubs. He is a regular rate and rhythm. Pulmonary auscultation is clear to auscultation throughout. Abdominal exam reveals left lower quadrant tenderness to palpation with no guarding and abdomen is soft and nondistended. Extremities are thin and frail however they are warm and well-perfused. There is no evidence of edema. Superficially skin is warm and dry with no evidence of wounds from what can be seen. Work-up today reveals a CBC with a normal white count, H&H of 12.2/35 and a normal platelet count. Chemistry is within normal limits aside from a potassium of 3.3. Magnesium is low at 1.5. Liver panel is within normal limits aside from an albumin that is slightly low at 3.2. Total protein is 6.5 within normal limits. Highly sensitive troponin is negative. His urine appears infected. He has a positive occult blood for stool. SARS-CoV-2 swab is negative. Imaging including a chest x-ray reveals no abnormalities and an abdomen pelvis CT with IV contrast reveals some circumferential thickening through the majority of the colon possibly consistent with a colitis. He also has mild bladder wall Thickening and colonic diverticulosis. Bladder stones are present fatty liver i s present, and he has an infrarenal abdominal aortic aneurysm measuring 4.2 cm in diameter. There are no previous images available for review. Overall this is a 66-year-old man presenting with significant weight loss that is concerning over the last couple of months who has a wasted appearance. He is reporting LLQ abdominal pain and black appearing stools concerning for possible GI bleed/colitis. He has a history of smoking as well as a history of multiple polyps removed from his colon 15 years ago. We will continue investigation for malignancy as a high concern given clinical presentation with a CT chest given history of smoking. (CT chest reviewed with emphysema and no evidence of mass or pneumonia present.) Agree with GI consult for consideration of EGD and colonoscopy. We will also order PSA, however, this may be falsely elevated in setting of UTI, so if elevated may need to be repeated. (PSA was normal). Agree with continuing empiric antibiotics given possible colitis and UTI. This may improve his abdominal pain. Appreciate GI recommendations. Nutrition consulted for severe malnutrition. Notably he smokes marijuana and although appetite is increased temporarily this does not help him taken any additional food. There is a 4.2 cm aneurysm in his infrarenal abdominal aorta on imaging which is not likely the cause of his pain. (also saw this in thoracic aorta on CT chest.) There are no additional records available at this time to monitor velocity of growth of this aneurysm, however, would recommend he follow-up with his PCP to continue outpatient monitoring. Smoking cessation highly recommended. DO Jace
[2022-07-18] MEDS ORDERED: PIPERACILLIN/TAZOBACTAM 3.375 GM in DEXTROSE 5% 100 ML/100 ML BAG IV STA (18:50)
[2022-07-18] MEDS ORDERED: POTASSIUM CHLORIDE CRTAB 20 MEQ TABCR PO STA (18:53)
[2022-07-18] MEDS ORDERED: MAGNESIUM SULFATE / D5W 1 GM/100 ML BAG IV STA (18:54)
[2022-07-18] MEDS ORDERED: ONDANSETRON INJ 2 MG/ML 2 ML VIAL IV PRN (19:35)
[2022-07-18] MEDS ORDERED: SODIUM CHLORIDE 0.9% 250 ML IV PRN (19:35)
[2022-07-18] MEDS ORDERED: SODIUM CHLORIDE 0.9% 1000ML 1,000 ML IV SCH (19:35)
[2022-07-18] MEDS ORDERED: MAGNESIUM SULFATE / D5W 1 GM/100 ML BAG IV ONE (19:35)
[2022-07-18] MEDS ORDERED: ALBUTEROL 0.083% NEBU SOLN 3 ML VIAL NEB PRN (19:35)
[2022-07-18 20:21] LABS: Free PSA % 16.4 %; Prostate SpecificAg Diagnostic 0.489 ng/ml (0-4)
--- NOTE | 2022-07-18 20:26 | CT Scan Report ---
CT SCAN OF THE CHEST WITHOUT IV CONTRAST CLINICAL HISTORY: Dyspnea. Generalized abdominal pain COMPARISON STUDY: Chest x-ray dated 07/18/2022. TECHNIQUE: CT scan of the thorax was performed from the thoracic inlet to the upper abdomen. Images are reviewed in the axial, sagittal, and coronal planes. IV contrast was not administered for this ex amination as per the referring clinician. A dose lowering technique was utilized adhering to the [facility] of [place]. CT DOSE: 215.38 mGy.cm FINDINGS: Thyroid: Normal in size and heterogeneous in attenuation. Thoracic aorta: There is atherosclerotic calcification of the thoracic aorta. There is mild aneurysma l dilatation of the ascending thoracic aorta which measures up to 4.3 cm. The remainder of the thorac ic aorta is normal in caliber, and the arch demonstrates standard 3-vessel anatomy. Heart: The heart is normal in size and without pericardial effusion. The coronary arteries are densel y calcified. Lungs and pleural spaces: There is moderate emphysema. No air space consolidation typical for pneumon ia or pleural effusion is identified. There are scattered calcified granulomas. The trachea and centr al airways appear clear. Foci of parenchymal scarring are seen throughout both lungs. Dependent scarring/atelectasis is noted at the lung bases. Mediastinum: There are calcified mediastin al lymph nodes. No mediastinal adenopathy is seen. Lynnette: There are calcified hilar nodes. Note that the lynnette are not well assessed without IV contrast. Axillae: There is no axillary lymphadenopathy. Upper abdomen: The liver is steatotic. Excreted IV contrast is seen within the renal collecting syste ms. There are calcified splenic granulomas. Skeletal structures: The skeletal structures are osteopenic. No lytic or blastic bony lesions are see n. Soft tissues: The patient is cachectic. IMPRESSION: 1. Emphysema. 2. There is no airspace consolidation or pleural effusion. 3. No lymphadenopathy is identified. 4. There is aneurysmal dilatation of the ascending thoracic aorta which measures up to 4.3 cm. 5. Hepatic steatosis. 6. Additional findings as above. ACT 112: Negative or not required by law. Electronically signed by: Stephen Traylor M.D. 07/18/2022 8:24 PM
[2022-07-18] MEDS: PANTOprazole 40 MG in DEXTROSE 5% 100 ML IV SCH (20:34)
[2022-07-18] MEDS ORDERED: PNEUMOCOCCAL POLYSACCHARIDES 25 MCG/0.5 ML VIAL/SYR IM ONE (21:34)
[2022-07-18 21:58] LABS: Hematocrit (blood only) 29.5 % (40.1-51.0); Hemoglobin 10.3 g/dl (14.0-18.0)
[2022-07-18] MEDS: POTASSIUM CHLORIDE CRTAB 20 MEQ TABCR PO ONE (22:33)
[2022-07-18 22:49] LABS: Ferritin 130.5 ng/ml (8-388)
[2022-07-19] MEDS: POTASSIUM CHLORIDE CRTAB 20 MEQ TABCR PO ONE (01:04)
[2022-07-19] MEDS: PANTOprazole 40 MG in DEXTROSE 5% 100 ML IV SCH ×5 (01:05→21:58)
[2022-07-19] MEDS: PIPERACILLIN/TAZOBACTAM 3.375 GM in DEXTROSE 5% 100 ML IV SCH ×2 (01:23→07:44)
[2022-07-19] MEDS ORDERED: guaiFENesin SUGAR FREE 200 MG/10 ML UDC PO PRN (01:47)
[2022-07-19 07:23] LABS: Hematocrit (blood only) 26.8 % (40.1-51.0); Hemoglobin 9.5 g/dl (14.0-18.0); Mean Corpuscular Hemoglobin 33.5 pg (25.0-34.0); Mean Corpuscular Hgb Conc 35.4 g/dL (32.0-36.0); Mean Corpuscular Volume 94.4 fL (80.0-100.0); Mean Platelet Volume 10.1 fL (9.4-12.4); Platelet Count 173 K/uL (130-400); RDW Standard Deviation 51.4 fL (36.4-46.3); Red Blood Count 2.84 M/uL (4.63-6.08); White Blood Count 3.05 K/ul (4.8-10.8)
[2022-07-19] MEDS: FOLIC ACID 1 MG TAB PO SCH (07:44)
[2022-07-19] MEDS: CHOLECALCIFEROL 1,000 UNITS 25 MCG TAB PO SCH (07:44)
[2022-07-19 08:03] LABS: Calcium 7.7 mg/dl (8.5-10.1); Magnesium 1.6 mg/dl (1.7-2.4); Potassium 3.2 mmol/L (3.5-5.1)
[2022-07-19 08:08] LABS: BUN Creatinine Ratio 8.1 (10-20); Creatinine Clr Calc Pharmacy 137.3 ml/min; Est GFR (African American) 147.1 ml/min; Est GFR (Non-African American) 126.9 ml/min
[2022-07-19] MEDS ORDERED: POTASSIUM CHLORIDE CRTAB 20 MEQ TABCR PO STA (08:42)
[2022-07-19] MEDS: MAGNESIUM SULFATE / D5W 1 GM/100 ML BAG IV SCH ×2 (08:56→10:56)
--- NOTE | 2022-07-19 09:24 | Gastrointestinal Consultation ---
Date of Consultation July 19, 2022 Assessment & Plan (1) Abnormal CT of the abdomen: 66 year old male with upper abd pain x 6 months, intermittent nausea/vomiting, previous report of coffee ground emesis/hematemesis and black stools CT w/ mild circumferential thickening throughout the majority of the colon Submit stool studies Clear liquids today IV PPI BID Trend H&H Monitor output Transfuse PRN Golytely NPO midnight Plan for EGD/Colon Thank you for allowing us to participate in the care of this patient. Please call with any acute changes, questions or concerns. Please see addendum below with additional recommendation from my supervising physician. Supervising Physician Co-Signing Physician Notes I have seen and examined the patient with GENTRY Taylor whose note reflects our findings and plan. Patient is cachectic. Nauseated, intermittent vomiting. Melena. Mild normocytic anemia. He needs an EGD and colonoscopy. Will tenatively plan for bidirectional endoscopy tomorrow. Stool testing to be done as well. CT reviewed. History of Present Illness Reason for Consultation: dark stools x 6 months Requesting Physician: Mike Attending Physician: Lily Mckeon MD History of Present Illness 66 year old yuliya with history of Vit-D deficiency, tobacco abuse, colon polyps who is admitted through the ED w/ abdominal pain and shortness of breath. GI was asked to evaluate for dark stools x 6 month. Pt was seen, chart reviewed. Notes that for at least 6 months he has had upper abd pain. Sharp and burning. Associated with nausea. Has had intermittent emesis. Can be clear, coffee ground or with fresh blood. Around the same time has noticed change in bowel habits. Loose stools. All stools are black. No BRB. He notes he has had worsening SOB He has lost weight, unsure how much No previous EGD Had colonoscopy about 20 years ago, suggests 10-15 polyps removed, was to follow up in 5 years and elected not to Occult blood: positive CTAP: Mild circumferential thickening throughout the majority of the colon. This could be due to underdistention or a low-grade colitis. Mild bladder wall thickening which could be chronic. Recommend correlation with urinalysis to exclude a cystitis.Colonic diverticulosis. No evidence for acute diverticulitis. Multiple punctate bladder stones.. Hepatic steatosis.. Bilobed infrarenal abdominal aortic aneurysm measuring up to 4.2 cm in d Allergies Allergy/AdvReac Type Severity Reaction Status Date / Time No Known Allergies Allergy Verified 07/18/22 16:05 Home Medications Medication Instructions Recorded Confirmed Type cholecalciferol (vitamin D3) 25 25 mcg PO DAILY 07/18/22 07/18/22 History mcg (1,000 unit) capsule (Vitamin D3) Patient History Medical History (Updated 07/19/22 @ 10:42 by Lily Mckeon MD) Tobacco use Vitamin D deficiency Surgical History (Updated 07/18/22 @ 17:35 by Aishwarya Razo PA-C) H/O: vasectomy History of colonoscopy History of elbow surgery Family History (Updated 07/18/22 @ 17:37 by Aishwarya Razo PA-C) Brother Heart disease Father Heart disease Other Breast cancer Social History (Updated 07/18/22 @ 17:35 by Aishwarya Razo PA-C) Smoking Status: Current some day smoker Tobacco Type: Cigars Cigarettes Per Day: 1-2 a day; Smoking End Date: smoked 1.5ppd x 40 years. Quit 10 years ago. Current smokes 1-2 cigars day; Second Hand Exposure: No; Do You Dip or Chew Tobacco: No; Hx Alcohol Use: Yes (2-3) Alcohol type: beer Alcohol Intake Frequency: 2-3 x/Week Hx Substance Use: Yes Non-Prescribed Medications: Marijuana Preferred Language: Greenlandic Communication Ability: Effective Diesel Engineer Required: No Beliefs That Will Affect Care: None Current Living Situation: Alone Feels Safe at Home: Yes Safety Concerns: Feels Safe At This Time Assistive Devices: Cane, Denture - Upper, Denture - Lower, Glasses and Hearing Aid - Bilateral Review of Systems Review of Systems: All systems reviewed & are unremarkable except as noted in HPI & below Physical Exam Constitutional: WD/WN, vitals as above Respiratory: normal respiratory effort, lungs clear to auscultation Cardiovascular: Rate/Rhythm: regular rate and regular rhythm Gastrointestinal (Abdomen): normal bowel sounds, soft, nontender, no hepatosplenomegaly Skin: no rashes, warm and dry Results & Data ([facility]) Vital Signs (Past 12 Hours) Vital Signs Temp Pulse Pulse Pulse Resp BP BP 07/19/22 07:57 36.9 C 52 L 16 115/73 07/19/22 02:31 36.5 C 66 18 99/65 L 07/18/22 22:09 70 07/18/22 22:00 37.0 C 62 20 110/75 07/18/22 22:45 Pulse Ox O2 Del Method 07/19/22 07:57 96 Room Air 07/19/22 02:31 99 Room Air 07/18/22 22:09 07/18/22 22:00 97 Room Air 07/18/22 22:45 Room Air Laboratory Results 07/19/22 07/19/22 07/19/22 Range/Units 06:46 06:46 06:46 WBC 3.05 L (4.8-10.8) K/ul RBC 2.84 L (4.63-6.08) M/uL Hgb 9.5 L (14.0-18.0) g/dl Hct 26.8 L (40.1-51.0) % MCV 94.4 (80.0-100.0) fL MCH 33.5 (25.0-34.0) pg MCHC 35.4 (32.0-36.0) g/dL RDW Std Deviation 51.4 H (36.4-46.3) fL RDW Coeff of Breonna 15.0 H (11.5-14.5) % Plt Count 173 (130-400) K/uL MPV 10.1 (9.4-12.4) fL Immature Gran % (Auto) % Neut % (Auto) % Lymph % (Auto) % Day % (Auto) % Eos % (Auto) % Baso % (Auto) % Neut # (Auto) (1.4-6.5) K/uL Lymph # (Auto) (1.2-3.4) K/uL Day # (Auto) (0.24-0.82) K/uL Eos # (Auto) (0-0.50) K/uL Baso # (Auto) (0-0.2) K/uL Immature Gran # (Auto) (0.00-0.02) K/uL PT (9.0-12.0) Seconds INR (0.9-1.1) APTT (21.0-31.0) Seconds PTT Ratio Sodium 139 (136-145) mmol/L Potassium 3.2 L (3.5-5.1) mmol/L Chloride 99 (98-107) mmol/L Carbon Dioxide 31 (21-32) mmol/L Anion Gap 9 (3-11) BUN 3 L (6-23) mg/dl Creatinine 0.37 L (0.6-1.4) mg/dl Est Cr Clr Drug Dosing 137.3 Est GFR ( Amer) 147.1 ml/min Est GFR (Non-Af Amer) 126.9 ml/min BUN/Creatinine Ratio 8.1 L (10-20) Glucose 91 (70-99(Fasting)) mg/dl Calcium 7.7 L (8.5-10.1) mg/dl Phosphorus Pending Magnesium 1.6 L (1.7-2.4) mg/dl Iron (35-175) mcg/dl Transferrin (200-360) mg/dl Ferritin (8-388) ng/ml Total Bilirubin (0.2-1.0) mg/dl AST (13-39) U/L ALT (7-52) U/L Alkaline Phosphatase (34-104) U/L Troponin I High Sens (0-20) pg/ml Total Protein (6.0-8.3) gm/dl Albumin (3.4-5.0) gm/dl Globulin (2.5-4.0) gm/dl Albumin/Globulin Ratio (0.9-2) Lipase (11-82) U/L Prostate Specific Ag (0-4) ng/ml Free PSA (0-2.0) ng/ml % Free PSA % Vitamin B12 (180-914) pg/ml Folate (>5.38) ng/ml Urine Color Urine Appearance (Clear) Urine pH (4.5-7.5) Ur Specific [place] (1.000-1.030) Urine Protein (Negative) Urine Glucose (UA) (Negative) Urine Ketones (Negative) Urine Blood (Negative) Urine Nitrite (Negative) Urine Bilirubin (Negative) Urine Urobilinogen (Negative) Ur Leukocyte Esterase (Negative) Urine WBC (Auto) (0-5) /hpf Urine RBC (Auto) (0-4) /hpf U Hyaline Cast (Auto) (0-5) /lpf U Epithel Cells (Auto) (0-5) /lpf Urine Bacteria (Auto) (Negative) Urine Mucus (None Prsent) Urine Yeast POC Stool Occult Blood (Negative) Hepatitis C Ab (EIA) Hep C Ab Signal/Cutoff SARS-CoV-2, RNA, NAAT (NEGATIVE) Blood Type Blood Type Recheck Antibody Screen Crossmatch 07/19/22 07/18/22 07/18/22 Range/Units 06:46 22:45 20:21 WBC (4.8-10.8) K/ul RBC (4.63-6.08) M/uL Hgb 10.3 L (14.0-18.0) g/dl Hct 29.5 L (40.1-51.0) % MCV (80.0-100.0) fL MCH (25.0-34.0) pg MCHC (32.0-36.0) g/dL RDW Std Deviation (36.4-46.3) fL RDW Coeff of Breonna (11.5-14.5) % Plt Count (130-400) K/uL MPV (9.4-12.4) fL Immature Gran % (Auto) % Neut % (Auto) % Lymph % (Auto) % Day % (Auto) % Eos % (Auto) % Baso % (Auto) % Neut # (Auto) (1.4-6.5) K/uL Lymph # (Auto) (1.2-3.4) K/uL Day # (Auto) (0.24-0.82) K/uL Eos # (Auto) (0-0.50) K/uL Baso # (Auto) (0-0.2) K/uL Immature Gran # (Auto) (0.00-0.02) K/uL PT (9.0-12.0) Seconds INR (0.9-1.1) APTT (21.0-31.0) Seconds PTT Ratio Sodium (136-145) mmol/L Potassium (3.5-5.1) mmol/L Chloride (98-107) mmol/L Carbon Dioxide (21-32) mmol/L Anion Gap (3-11) BUN (6-23) mg/dl Creatinine (0.6-1.4) mg/dl Est Cr Clr Drug Dosing Est GFR ( Amer) ml/min Est GFR (Non-Af Amer) ml/min BUN/Creatinine Ratio (10-20) Glucose (70-99(Fasting)) mg/dl Calcium (8.5-10.1) mg/dl Phosphorus Magnesium (1.7-2.4) mg/dl Iron (35-175) mcg/dl Transferrin (200-360) mg/dl Ferritin (8-388) ng/ml Total Bilirubin (0.2-1.0) mg/dl AST (13-39) U/L ALT (7-52) U/L Alkaline Phosphatase (34-104) U/L Troponin I High Sens (0-20) pg/ml Total Protein (6.0-8.3) gm/dl Albumin (3.4-5.0) gm/dl Globulin (2.5-4.0) gm/dl Albumin/Globulin Ratio (0.9-2) Lipase (11-82) U/L Prostate Specific Ag (0-4) ng/ml Free PSA (0-2.0) ng/ml % Free PSA % Vitamin B12 (180-914) pg/ml Folate (>5.38) ng/ml Urine Color Urine Appearance (Clear) Urine pH (4.5-7.5) Ur Specific [place] (1.000-1.030) Urine Protein (Negative) Urine Glucose (UA) (Negative) Urine Ketones (Negative) Urine Blood (Negative) Urine Nitrite (Negative) Urine Bilirubin (Negative) Urine Urobilinogen (Negative) Ur Leukocyte Esterase (Negative) Urine WBC (Auto) (0-5) /hpf Urine RBC (Auto) (0-4) /hpf U Hyaline Cast (Auto) (0-5) /lpf U Epithel Cells (Auto) (0-5) /lpf Urine Bacteria (Auto) (Negative) Urine Mucus (None Prsent) Urine Yeast POC Stool Occult Blood (Negative) Hepatitis C Ab (EIA) Pending Hep C Ab Signal/Cutoff Pending SARS-CoV-2, RNA, NAAT (NEGATIVE) Blood Type Blood Type Recheck O Positive Antibody Screen Crossmatch 07/18/22 07/18/22 07/18/22 Range/Units 20:21 17:19 16:00 WBC (4.8-10.8) K/ul RBC (4.63-6.08) M/uL Hgb (14.0-18.0) g/dl Hct (40.1-51.0) % MCV (80.0-100.0) fL MCH (25.0-34.0) pg MCHC (32.0-36.0) g/dL RDW Std Deviation (36.4-46.3) fL RDW Coeff of Breonna (11.5-14.5) % Plt Count (130-400) K/uL MPV (9.4-12.4) fL Immature Gran % (Auto) % Neut % (Auto) % Lymph % (Auto) % Day % (Auto) % Eos % (Auto) % Baso % (Auto) % Neut # (Auto) (1.4-6.5) K/uL Lymph # (Auto) (1.2-3.4) K/uL Day # (Auto) (0.24-0.82) K/uL Eos # (Auto) (0-0.50) K/uL Baso # (Auto) (0-0.2) K/uL Immature Gran # (Auto) (0.00-0.02) K/uL PT (9.0-12.0) Seconds INR (0.9-1.1) APTT (21.0-31.0) Seconds PTT Ratio Sodium (136-145) mmol/L Potassium (3.5-5.1) mmol/L Chloride (98-107) mmol/L Carbon Dioxide (21-32) mmol/L Anion Gap (3-11) BUN (6-23) mg/dl Creatinine (0.6-1.4) mg/dl Est Cr Clr Drug Dosing Est GFR ( Amer) ml/min Est GFR (Non-Af Amer) ml/min BUN/Creatinine Ratio (10-20) Glucose (70-99(Fasting)) mg/dl Calcium (8.5-10.1) mg/dl Phosphorus Magnesium (1.7-2.4) mg/dl Iron (35-175) mcg/dl Transferrin (200-360) mg/dl Ferritin (8-388) ng/ml Total Bilirubin (0.2-1.0) mg/dl AST (13-39) U/L ALT (7-52) U/L Alkaline Phosphatase (34-104) U/L Troponin I High Sens (0-20) pg/ml Total Protein (6.0-8.3) gm/dl Albumin (3.4-5.0) gm/dl Globulin (2.5-4.0) gm/dl Albumin/Globulin Ratio (0.9-2) Lipase (11-82) U/L Prostate Specific Ag (0-4) ng/ml Free PSA (0-2.0) ng/ml % Free PSA % Vitamin B12 (180-914) pg/ml Folate (>5.38) ng/ml Urine Color Yellow Urine Appearance Cloudy A (Clear) Urine pH 6.5 (4.5-7.5) Ur Specific [place] > 1.045 H (1.000-1.030) Urine Protein 1+ H (Negative) Urine Glucose (UA) Negative (Negative) Urine Ketones 2+ H (Negative) Urine Blood 1+ H (Negative) Urine Nitrite Negative (Negative) Urine Bilirubin Negative (Negative) Urine Urobilinogen Negative (Negative) Ur Leukocyte Esterase 1+ H (Negative) Urine WBC (Auto) >30 H (0-5) /hpf Urine RBC (Auto) 5-10 H (0-4) /hpf U Hyaline Cast (Auto) 10-30 H (0-5) /lpf U Epithel Cells (Auto) 10-20 H (0-5) /lpf Urine Bacteria (Auto) 4+ H (Negative) Urine Mucus Present A (None Prsent) Urine Yeast Not Reportable POC Stool Occult Blood Positive A (Negative) Hepatitis C Ab (EIA) Hep C Ab Signal/Cutoff SARS-CoV-2, RNA, NAAT (NEGATIVE) Blood Type O Positive Blood Type Recheck Antibody Screen NEGATIVE Crossmatch See Detail 07/18/22 07/18/22 07/18/22 Range/Units 14:13 13:45 13:00 WBC (4.8-10.8) K/ul RBC (4.63-6.08) M/uL Hgb (14.0-18.0) g/dl Hct (40.1-51.0) % MCV (80.0-100.0) fL MCH (25.0-34.0) pg MCHC (32.0-36.0) g/dL RDW Std Deviation (36.4-46.3) fL RDW Coeff of Breonna (11.5-14.5) % Plt Count (130-400) K/uL MPV (9.4-12.4) fL Immature Gran % (Auto) % Neut % (Auto) % Lymph % (Auto) % Day % (Auto) % Eos % (Auto) % Baso % (Auto) % Neut # (Auto) (1.4-6.5) K/uL Lymph # (Auto) (1.2-3.4) K/uL Day # (Auto) (0.24-0.82) K/uL Eos # (Auto) (0-0.50) K/uL Baso # (Auto) (0-0.2) K/uL Immature Gran # (Auto) (0.00-0.02) K/uL PT (9.0-12.0) Seconds INR (0.9-1.1) APTT (21.0-31.0) Seconds PTT Ratio Sodium (136-145) mmol/L Potassium (3.5-5.1) mmol/L Chloride (98-107) mmol/L Carbon Dioxide (21-32) mmol/L Anion Gap (3-11) BUN (6-23) mg/dl Creatinine (0.6-1.4) mg/dl Est Cr Clr Drug Dosing Est GFR ( Amer) ml/min Est GFR (Non-Af Amer) ml/min BUN/Creatinine Ratio (10-20) Glucose (70-99(Fasting)) mg/dl Calcium (8.5-10.1) mg/dl Phosphorus Magnesium (1.7-2.4) mg/dl Iron (35-175) mcg/dl Transferrin (200-360) mg/dl Ferritin (8-388) ng/ml Total Bilirubin (0.2-1.0) mg/dl AST (13-39) U/L ALT (7-52) U/L Alkaline Phosphatase (34-104) U/L Troponin I High Sens (0-20) pg/ml Total Protein (6.0-8.3) gm/dl Albumin (3.4-5.0) gm/dl Globulin (2.5-4.0) gm/dl Albumin/Globulin Ratio (0.9-2) Lipase (11-82) U/L Prostate Specific Ag 0.489 (0-4) ng/ml Free PSA 0.08 (0-2.0) ng/ml % Free PSA 16.4 % Vitamin B12 655 (180-914) pg/ml Folate 4.01 L (>5.38) ng/ml Urine Color Urine Appearance (Clear) Urine pH (4.5-7.5) Ur Specific [place] (1.000-1.030) Urine Protein (Negative) Urine Glucose (UA) (Negative) Urine Ketones (Negative) Urine Blood (Negative) Urine Nitrite (Negative) Urine Bilirubin (Negative) Urine Urobilinogen (Negative) Ur Leukocyte Esterase (Negative) Urine WBC (Auto) (0-5) /hpf Urine RBC (Auto) (0-4) /hpf U Hyaline Cast (Auto) (0-5) /lpf U Epithel Cells (Auto) (0-5) /lpf Urine Bacteria (Auto) (Negative) Urine Mucus (None Prsent) Urine Yeast POC Stool Occult Blood (Negative) Hepatitis C Ab (EIA) Hep C Ab Signal/Cutoff SARS-CoV-2, RNA, NAAT NEGATIVE (NEGATIVE) Blood Type Blood Type Recheck Antibody Screen Crossmatch 07/18/22 07/18/22 07/18/22 Range/Units 13:00 13:00 13:00 WBC (4.8-10.8) K/ul RBC (4.63-6.08) M/uL Hgb (14.0-18.0) g/dl Hct (40.1-51.0) % MCV (80.0-100.0) fL MCH (25.0-34.0) pg MCHC (32.0-36.0) g/dL RDW Std Deviation (36.4-46.3) fL RDW Coeff of Breonna (11.5-14.5) % Plt Count (130-400) K/uL MPV (9.4-12.4) fL Immature Gran % (Auto) % Neut % (Auto) % Lymph % (Auto) % Day % (Auto) % Eos % (Auto) % Baso % (Auto) % Neut # (Auto) (1.4-6.5) K/uL Lymph # (Auto) (1.2-3.4) K/uL Day # (Auto) (0.24-0.82) K/uL Eos # (Auto) (0-0.50) K/uL Baso # (Auto) (0-0.2) K/uL Immature Gran # (Auto) (0.00-0.02) K/uL PT (9.0-12.0) Seconds INR (0.9-1.1) APTT (21.0-31.0) Seconds PTT Ratio Sodium 136 (136-145) mmol/L Potassium 3.3 L (3.5-5.1) mmol/L Chloride 94 L (98-107) mmol/L Carbon Dioxide 27 (21-32) mmol/L Anion Gap 15 H (3-11) BUN 4 L (6-23) mg/dl Creatinine 0.51 L (0.6-1.4) mg/dl Est Cr Clr Drug Dosing Not Reportable Est GFR ( Amer) 128.9 ml/min Est GFR (Non-Af Amer) 111.2 ml/min BUN/Creatinine Ratio 7.8 L (10-20) Glucose 156 H (70-99(Fasting)) mg/dl Calcium 8.7 (8.5-10.1) mg/dl Phosphorus Magnesium 1.5 L (1.7-2.4) mg/dl Iron 142 (35-175) mcg/dl Transferrin 142 L (200-360) mg/dl Ferritin 130.5 (8-388) ng/ml Total Bilirubin 1.1 H (0.2-1.0) mg/dl AST 29 (13-39) U/L ALT 19 (7-52) U/L Alkaline Phosphatase 87 (34-104) U/L Troponin I High Sens 7.8 (0-20) pg/ml Total Protein 6.5 (6.0-8.3) gm/dl Albumin 3.2 L (3.4-5.0) gm/dl Globulin 3.3 (2.5-4.0) gm/dl Albumin/Globulin Ratio 1.0 (0.9-2) Lipase 5 L (11-82) U/L Prostate Specific Ag (0-4) ng/ml Free PSA (0-2.0) ng/ml % Free PSA % Vitamin B12 (180-914) pg/ml Folate (>5.38) ng/ml Urine Color Urine Appearance (Clear) Urine pH (4.5-7.5) Ur Specific [place] (1.000-1.030) Urine Protein (Negative) Urine Glucose (UA) (Negative) Urine Ketones (Negative) Urine Blood (Negative) Urine Nitrite (Negative) Urine Bilirubin (Negative) Urine Urobilinogen (Negative) Ur Leukocyte Esterase (Negative) Urine WBC (Auto) (0-5) /hpf Urine RBC (Auto) (0-4) /hpf U Hyaline Cast (Auto) (0-5) /lpf U Epithel Cells (Auto) (0-5) /lpf Urine Bacteria (Auto) (Negative) Urine Mucus (None Prsent) Urine Yeast POC Stool Occult Blood (Negative) Hepatitis C Ab (EIA) Hep C Ab Signal/Cutoff SARS-CoV-2, RNA, NAAT (NEGATIVE) Blood Type Blood Type Recheck Antibody Screen Crossmatch 07/18/22 07/18/22 Range/Units 13:00 13:00 WBC 5.88 (4.8-10.8) K/ul RBC 3.73 L (4.63-6.08) M/uL Hgb 12.2 L (14.0-18.0) g/dl Hct 34.8 L (40.1-51.0) % MCV 93.3 (80.0-100.0) fL MCH 32.7 (25.0-34.0) pg MCHC 35.1 (32.0-36.0) g/dL RDW Std Deviation 52.8 H (36.4-46.3) fL RDW Coeff of Breonna 15.4 H (11.5-14.5) % Plt Count 246 (130-400) K/uL MPV 10.1 (9.4-12.4) fL Immature Gran % (Auto) 0.7 % Neut % (Auto) 75.2 % Lymph % (Auto) 13.6 % Day % (Auto) 10.0 % Eos % (Auto) 0.0 % Baso % (Auto) 0.5 % Neut # (Auto) 4.42 (1.4-6.5) K/uL Lymph # (Auto) 0.80 L (1.2-3.4) K/uL Day # (Auto) 0.59 (0.24-0.82) K/uL Eos # (Auto) 0.00 (0-0.50) K/uL Baso # (Auto) 0.03 (0-0.2) K/uL Immature Gran # (Auto) 0.04 H (0.00-0.02) K/uL PT 10.6 (9.0-12.0) Seconds INR 1.0 (0.9-1.1) APTT 31.1 H (21.0-31.0) Seconds PTT Ratio 1.1 Sodium (136-145) mmol/L Potassium (3.5-5.1) mmol/L Chloride (98-107) mmol/L Carbon Dioxide (21-32) mmol/L Anion Gap (3-11) BUN (6-23) mg/dl Creatinine (0.6-1.4) mg/dl Est Cr Clr Drug Dosing Est GFR ( Amer) ml/min Est GFR (Non-Af Amer) ml/min BUN/Creatinine Ratio (10-20) Glucose (70-99(Fasting)) mg/dl Calcium (8.5-10.1) mg/dl Phosphorus Magnesium (1.7-2.4) mg/dl Iron (35-175) mcg/dl Transferrin (200-360) mg/dl Ferritin (8-388) ng/ml Total Bilirubin (0.2-1.0) mg/dl AST (13-39) U/L ALT (7-52) U/L Alkaline Phosphatase (34-104) U/L Troponin I High Sens (0-20) pg/ml Total Protein (6.0-8.3) gm/dl Albumin (3.4-5.0) gm/dl Globulin (2.5-4.0) gm/dl Albumin/Globulin Ratio (0.9-2) Lipase (11-82) U/L Prostate Specific Ag (0-4) ng/ml Free PSA (0-2.0) ng/ml % Free PSA % Vitamin B12 (180-914) pg/ml Folate (>5.38) ng/ml Urine Color Urine Appearance (Clear) Urine pH (4.5-7.5) Ur Specific [place] (1.000-1.030) Urine Protein (Negative) Urine Glucose (UA) (Negative) Urine Ketones (Negative) Urine Blood (Negative) Urine Nitrite (Negative) Urine Bilirubin (Negative) Urine Urobilinogen (Negative) Ur Leukocyte Esterase (Negative) Urine WBC (Auto) (0-5) /hpf Urine RBC (Auto) (0-4) /hpf U Hyaline Cast (Auto) (0-5) /lpf U Epithel Cells (Auto) (0-5) /lpf Urine Bacteria (Auto) (Negative) Urine Mucus (None Prsent) Urine Yeast POC Stool Occult Blood (Negative) Hepatitis C Ab (EIA) Hep C Ab Signal/Cutoff SARS-CoV-2, RNA, NAAT (NEGATIVE) Blood Type Blood Type Recheck Antibody Screen Crossmatch
[2022-07-19] MEDS ORDERED: SODIUM PHOSPHATE 3 MMOL/1 ML INFUSION IV STA (09:54)
[2022-07-19] MEDS ORDERED: SODIUM PHOSPHATE 30 MMOL in DEXTROSE 5% 500 ML IV ONE (10:30)
--- NOTE | 2022-07-19 10:37 | Hospitalist Progress Note ---
Date of Service July 19, 2022 Assessment & Plan (1) GI bleed: (2) Abdominal pain: (3) Anemia: Plan: 66-year-old male with PMH vitamin D deficiency, tobacco use presented to ER with complaint of melena x 6 months. Previously followed with [place] [facility]. Has not been seen for over 2 years. Patient reports having nausea, vomiting, dark stools for at least 6 months On admission, Hb was 12.2 (Per H & P, Hgb: 15 [facility] CT Abd/pelvis noted mild circumferential thickening throughout the majority of the colon, mild bladder wall thickening which could be chronic, colonic diverticulosis with no evidence for acute diverticulitis, multiple punctate bladder stones, hepatic steatosis and bilobed infrarenal abdominal aortic aneurysm measuring up to 4.2 cm in diameter. + Hemoccult in ER Continue IV PPI Hb trended down to 9.5 this AM (Some of this may be dilutional as all cell lines dropped) Possible colitis on CT Monitor Hemoglobin Appreciate GI eval NPO PMN for possible scopes tomorrow Change antibiotics from zosyn to ciprofloxacin and metronidazole for now and monitor (4) Severe protein-calorie malnutrition: Plan: Reported 30 pound weight loss in past several months CT Chest: Emphysema. There is no airspace consolidation or pleural effusion. No lymphadenopathy is identified. There is aneurysmal dilatation of the ascending thoracic aorta which measures up to 4.3 cm. Hepatic steatosis. Will get Dietitian consult a (5) UTI (urinary tract infection): Plan: Patient reported dysuria and dark-colored urine UA suggestive of UTI. Should be covered by current antibiotics for now until culture results (6) Hypokalemia: (7) Hypophosphatemia: (8) Hypomagnesemia: Plan: K, Mag and phos are low today Due to GI losses (plus poor intake) Replete and monitor Get EKG for baseline Tele monitoring (9) Cough: Plan: Chronic cough and exertional dyspnea. History of tobacco use Likely underlying undiagnosed COPD CT chest with noted emphysema Albuterol nebs prn Counselled patient to quit cigar smoking too (10) Abnormal CT of the abdomen: Plan: CT abdomen pelvis: Bilobed infrarenal abdominal aortic aneurysm measuring up to 4.2 cm in diameter. Will need further outpatient follow-up (11) Tobacco use: Plan: Previous heavy cigarette smoker. Current cigar use Smoking cessation encouraged Denies nicotine patch DVT Prophylaxis SCDs DNR/DNI Follows with [place] [facility] for routine care Admission and Anticipated Discharge Date Admission Date: July 18, 2022 Subjective Patient seen and examined Reports chronic nausea, vomiting (occasionally coffee ground), dark stools for the past 6 months Reports abd discomfort especially left sided Denied any dizziness, headache Reports chronic cough and dyspnea on exertion. Quit smoking cigarette some years ago but still smokes cigar Denied fevers, chills Reports dysuria. Denied hematuria, freq, flank pain Reports weight loss over the past several months and poor appetite Physical Exam Constitutional: + thin; no acute distress Eyes: PERRL, conjunctivae normal, anicteric sclerae ENMT: external ear and nose normal, oropharynx normal Respiratory: normal respiratory effort, lungs clear to auscultation Cardiovascular: Rate/Rhythm: regular rate and regular rhythm S1 S2 Gastrointestinal (Abdomen): normal bowel sounds, soft, nontender, no hepatosplenomegaly Musculoskeletal: no cyanosis or clubbing, extremities motor strength 5/5 No pedal edema Neurologic: PERRL, EOMI, accommodation nl, no face palsy, no dysarthria Psychiatric: A+Ox3, euthymic affect Results & Data Results & Data ([facility]) Vital Signs (Past 12 Hours) Vital Signs Temp Pulse Pulse Resp BP BP Pulse Ox 07/19/22 08:30 07/19/22 07:57 36.9 C 52 L 16 115/73 96 07/19/22 02:31 36.5 C 66 18 99/65 L 99 07/18/22 22:45 O2 Del Method 07/19/22 08:30 Room Air 07/19/22 07:57 Room Air 07/19/22 02:31 Room Air 07/18/22 22:45 Room Air Laboratory Results Abnormal lab results 07/18/22 07/18/22 07/18/22 Range/Units 13:00 13:00 13:00 WBC (4.8-10.8) K/ul RBC 3.73 L (4.63-6.08) M/uL Hgb 12.2 L (14.0-18.0) g/dl Hct 34.8 L (40.1-51.0) % RDW Std Deviation 52.8 H (36.4-46.3) fL RDW Coeff of Breonna 15.4 H (11.5-14.5) % Lymph # (Auto) 0.80 L (1.2-3.4) K/uL Immature Gran # (Auto) 0.04 H (0.00-0.02) K/uL APTT 31.1 H (21.0-31.0) Seconds Potassium 3.3 L (3.5-5.1) mmol/L Chloride 94 L (98-107) mmol/L Anion Gap 15 H (3-11) BUN 4 L (6-23) mg/dl Creatinine 0.51 L (0.6-1.4) mg/dl BUN/Creatinine Ratio 7.8 L (10-20) Glucose 156 H (70-99(Fasting)) mg/dl Calcium (8.5-10.1) mg/dl Phosphorus (2.5-4.9) mg/dl Magnesium (1.7-2.4) mg/dl Transferrin (200-360) mg/dl Total Bilirubin 1.1 H (0.2-1.0) mg/dl Albumin 3.2 L (3.4-5.0) gm/dl Lipase 5 L (11-82) U/L Folate (>5.38) ng/ml Urine Appearance (Clear) Ur Specific [place] (1.000-1.030) Urine Protein (Negative) Urine Ketones (Negative) Urine Blood (Negative) Ur Leukocyte Esterase (Negative) Urine WBC (Auto) (0-5) /hpf Urine RBC (Auto) (0-4) /hpf U Hyaline Cast (Auto) (0-5) /lpf U Epithel Cells (Auto) (0-5) /lpf Urine Bacteria (Auto) (Negative) Urine Mucus (None Prsent) POC Stool Occult Blood (Negative) Crossmatch 07/18/22 07/18/22 07/18/22 Range/Units 13:00 13:00 13:00 WBC (4.8-10.8) K/ul RBC (4.63-6.08) M/uL Hgb (14.0-18.0) g/dl Hct (40.1-51.0) % RDW Std Deviation (36.4-46.3) fL RDW Coeff of Breonna (11.5-14.5) % Lymph # (Auto) (1.2-3.4) K/uL Immature Gran # (Auto) (0.00-0.02) K/uL APTT (21.0-31.0) Seconds Potassium (3.5-5.1) mmol/L Chloride (98-107) mmol/L Anion Gap (3-11) BUN (6-23) mg/dl Creatinine (0.6-1.4) mg/dl BUN/Creatinine Ratio (10-20) Glucose (70-99(Fasting)) mg/dl Calcium (8.5-10.1) mg/dl Phosphorus (2.5-4.9) mg/dl Magnesium 1.5 L (1.7-2.4) mg/dl Transferrin 142 L (200-360) mg/dl Total Bilirubin (0.2-1.0) mg/dl Albumin (3.4-5.0) gm/dl Lipase (11-82) U/L Folate 4.01 L (>5.38) ng/ml Urine Appearance (Clear) Ur Specific [place] (1.000-1.030) Urine Protein (Negative) Urine Ketones (Negative) Urine Blood (Negative) Ur Leukocyte Esterase (Negative) Urine WBC (Auto) (0-5) /hpf Urine RBC (Auto) (0-4) /hpf U Hyaline Cast (Auto) (0-5) /lpf U Epithel Cells (Auto) (0-5) /lpf Urine Bacteria (Auto) (Negative) Urine Mucus (None Prsent) POC Stool Occult Blood (Negative) Crossmatch 07/18/22 07/18/22 07/18/22 Range/Units 16:00 17:19 20:21 WBC (4.8-10.8) K/ul RBC (4.63-6.08) M/uL Hgb (14.0-18.0) g/dl Hct (40.1-51.0) % RDW Std Deviation (36.4-46.3) fL RDW Coeff of Breonna (11.5-14.5) % Lymph # (Auto) (1.2-3.4) K/uL Immature Gran # (Auto) (0.00-0.02) K/uL APTT (21.0-31.0) Seconds Potassium (3.5-5.1) mmol/L Chloride (98-107) mmol/L Anion Gap (3-11) BUN (6-23) mg/dl Creatinine (0.6-1.4) mg/dl BUN/Creatinine Ratio (10-20) Glucose (70-99(Fasting)) mg/dl Calcium (8.5-10.1) mg/dl Phosphorus (2.5-4.9) mg/dl Magnesium (1.7-2.4) mg/dl Transferrin (200-360) mg/dl Total Bilirubin (0.2-1.0) mg/dl Albumin (3.4-5.0) gm/dl Lipase (11-82) U/L Folate (>5.38) ng/ml Urine Appearance Cloudy A (Clear) Ur Specific [place] > 1.045 H (1.000-1.030) Urine Protein 1+ H (Negative) Urine Ketones 2+ H (Negative) Urine Blood 1+ H (Negative) Ur Leukocyte Esterase 1+ H (Negative) Urine WBC (Auto) >30 H (0-5) /hpf Urine RBC (Auto) 5-10 H (0-4) /hpf U Hyaline Cast (Auto) 10-30 H (0-5) /lpf U Epithel Cells (Auto) 10-20 H (0-5) /lpf Urine Bacteria (Auto) 4+ H (Negative) Urine Mucus Present A (None Prsent) POC Stool Occult Blood Positive A (Negative) Crossmatch See Detail 07/18/22 07/19/22 07/19/22 Range/Units 20:21 06:46 06:46 WBC 3.05 L (4.8-10.8) K/ul RBC 2.84 L (4.63-6.08) M/uL Hgb 10.3 L 9.5 L (14.0-18.0) g/dl Hct 29.5 L 26.8 L (40.1-51.0) % RDW Std Deviation 51.4 H (36.4-46.3) fL RDW Coeff of Breonna 15.0 H (11.5-14.5) % Lymph # (Auto) (1.2-3.4) K/uL Immature Gran # (Auto) (0.00-0.02) K/uL APTT (21.0-31.0) Seconds Potassium 3.2 L (3.5-5.1) mmol/L Chloride (98-107) mmol/L Anion Gap (3-11) BUN 3 L (6-23) mg/dl Creatinine 0.37 L (0.6-1.4) mg/dl BUN/Creatinine Ratio 8.1 L (10-20) Glucose (70-99(Fasting)) mg/dl Calcium 7.7 L (8.5-10.1) mg/dl Phosphorus (2.5-4.9) mg/dl Magnesium 1.6 L (1.7-2.4) mg/dl Transferrin (200-360) mg/dl Total Bilirubin (0.2-1.0) mg/dl Albumin (3.4-5.0) gm/dl Lipase (11-82) U/L Folate (>5.38) ng/ml Urine Appearance (Clear) Ur Specific [place] (1.000-1.030) Urine Protein (Negative) Urine Ketones (Negative) Urine Blood (Negative) Ur Leukocyte Esterase (Negative) Urine WBC (Auto) (0-5) /hpf Urine RBC (Auto) (0-4) /hpf U Hyaline Cast (Auto) (0-5) /lpf U Epithel Cells (Auto) (0-5) /lpf Urine Bacteria (Auto) (Negative) Urine Mucus (None Prsent) POC Stool Occult Blood (Negative) Crossmatch 07/19/22 Range/Units 06:46 WBC (4.8-10.8) K/ul RBC (4.63-6.08) M/uL Hgb (14.0-18.0) g/dl Hct (40.1-51.0) % RDW Std Deviation (36.4-46.3) fL RDW Coeff of Breonna (11.5-14.5) % Lymph # (Auto) (1.2-3.4) K/uL Immature Gran # (Auto) (0.00-0.02) K/uL APTT (21.0-31.0) Seconds Potassium (3.5-5.1) mmol/L Chloride (98-107) mmol/L Anion Gap (3-11) BUN (6-23) mg/dl Creatinine (0.6-1.4) mg/dl BUN/Creatinine Ratio (10-20) Glucose (70-99(Fasting)) mg/dl Calcium (8.5-10.1) mg/dl Phosphorus 1.2 L* (2.5-4.9) mg/dl Magnesium (1.7-2.4) mg/dl Transferrin (200-360) mg/dl Total Bilirubin (0.2-1.0) mg/dl Albumin (3.4-5.0) gm/dl Lipase (11-82) U/L Folate (>5.38) ng/ml Urine Appearance (Clear) Ur Specific [place] (1.000-1.030) Urine Protein (Negative) Urine Ketones (Negative) Urine Blood (Negative) Ur Leukocyte Esterase (Negative) Urine WBC (Auto) (0-5) /hpf Urine RBC (Auto) (0-4) /hpf U Hyaline Cast (Auto) (0-5) /lpf U Epithel Cells (Auto) (0-5) /lpf Urine Bacteria (Auto) (Negative) Urine Mucus (None Prsent) POC Stool Occult Blood (Negative) Crossmatch
[2022-07-19] MEDS: metroNIDAZOLE 500 MG/100 ML BAG IV SCH ×2 (13:33→22:05)
[2022-07-19] MEDS ORDERED: LAVAGE SOLUTION 4000ML PO ONE (16:00)
[2022-07-19] MEDS: CIPROFLOXACIN / D5W 400 MG/200 ML BAG IV SCH (16:43)
[2022-07-19] MEDS ORDERED: POTASSIUM CHLORIDE CRTAB 20 MEQ TABCR PO ONE (23:00)
[2022-07-20] MEDS: PANTOprazole 40 MG in DEXTROSE 5% 100 ML IV SCH ×3 (03:11→11:55)
[2022-07-20] MEDS: CIPROFLOXACIN / D5W 400 MG/200 ML BAG IV SCH ×2 (04:27→16:29)
[2022-07-20] MEDS: metroNIDAZOLE 500 MG/100 ML BAG IV SCH ×3 (06:31→22:08)
[2022-07-20 07:22] LABS: Hematocrit (blood only) 25.4 % (40.1-51.0); Hemoglobin 9.1 g/dl (14.0-18.0); Mean Corpuscular Hemoglobin 32.6 pg (25.0-34.0); Mean Corpuscular Hgb Conc 35.8 g/dL (32.0-36.0); Mean Platelet Volume 10.3 fL (9.4-12.4); Platelet Count 177 K/uL (130-400); RDW Coefficient of Variation 14.5 % (11.5-14.5); RDW Standard Deviation 48.6 fL (36.4-46.3); Red Blood Count 2.79 M/uL (4.63-6.08); White Blood Count 3.32 K/ul (4.8-10.8)
[2022-07-20 07:57] LABS: Albumin Level 2.4 gm/dl (3.4-5.0); BUN Creatinine Ratio 5.1 (10-20); Bilirubin Direct 0.2 mg/dl (0-0.2); Bilirubin,Total 0.6 mg/dl (0.2-1.0); Calcium 7.5 mg/dl (8.5-10.1); Creatinine Clr Calc Pharmacy 127.9 ml/min; Est GFR (African American) 143.9 ml/min; Est GFR (Non-African American) 124.2 ml/min; Magnesium 1.7 mg/dl (1.7-2.4); Phosphorus 2.2 mg/dl (2.5-4.9); Potassium 2.7 mmol/L (3.5-5.1); Total Protein 4.8 gm/dl (6.0-8.3)
[2022-07-20] MEDS: CHOLECALCIFEROL 1,000 UNITS 25 MCG TAB PO SCH (08:28)
[2022-07-20] MEDS: FOLIC ACID 1 MG TAB PO SCH (08:28)
--- NOTE | 2022-07-20 09:26 | Communication Note ---
Date of Service: July 20, 2022 Drank 3/4 of prep. Remains NPO for EGD/Colon today. Suggests his stools are clear, liquid with some yellow from time to time. Did not see black/bloody st ools with prep. Denies pain, nausea/vomiting this AM. Please keep Abhinav NPO for EGD/Colon today.
[2022-07-20] MEDS ORDERED: POTASSIUM CHLORIDE CRTAB 20 MEQ TABCR PO STA (09:38)
[2022-07-20] MEDS ORDERED: POTASSIUM PHOS 3 MMOL/1 ML INFUSION IV STA (09:38)
--- NOTE | 2022-07-20 09:39 | Hospitalist Progress Note ---
Date of Service July 20, 2022 Assessment & Plan (1) GI bleed: (2) Abdominal pain: (3) Anemia: Plan: 66-year-old male with PMH vitamin D deficiency, tobacco use presented to ER with complaint of melena x 6 months. Previously followed with [place] [facility]. Has not been seen for over 2 years. Patient reports having nausea, vomiting, dark stools for at least 6 months On admission, Hb was 12.2 (Per H & P, Hgb: 15 [facility] CT Abd/pelvis noted mild circumferential thickening throughout the majority of the colon, mild bladder wall thickening which could be chronic, colonic diverticulosis with no evidence for acute diverticulitis, multiple punctate bladder stones, hepatic steatosis and bilobed infrarenal abdominal aortic aneurysm measuring up to 4.2 cm in diameter. + Hemoccult in ER Continue IV PPI Hb trended down to 9.1 this AM Possible colitis on CT Monitor Hemoglobin Appreciate GI eval Currently NPO for EGD/C scope today Continue ciprofloxacin and metronidazole for now and monitor (4) Severe protein-calorie malnutrition: Plan: Reported 30 pound weight loss in past several months CT Chest: Emphysema. There is no airspace consolidation or pleural effusion. No lymphadenopathy is identified. There is aneurysmal dilatation of the ascending thoracic aorta which measures up to 4.3 cm. Hepatic steatosis. Dietitian recs noted Will nutritional supplements as recommended after scopes (5) UTI (urinary tract infection): Plan: On admission, patient reported dysuria and dark-colored urine UA suggestive of UTI. Urine cx growing alpha strep, not enterococcus Continue abx (6) Hypokalemia: (7) Hypophosphatemia: (8) Hypomagnesemia: Plan: K phos remain low today Due to GI losses (plus poor intake) Replete and monitor Mg is 1.7 today (9) Cough: Plan: Chronic cough and exertional dyspnea. History of tobacco use Likely underlying undiagnosed COPD CT chest with noted emphysema Albuterol nebs prn Had counselled patient to quit cigar smoking (10) Abnormal CT of the abdomen: Plan: CT abdomen pelvis: Bilobed infrarenal abdominal aortic aneurysm measuring up to 4.2 cm in diameter. Will need further outpatient follow-up (11) Tobacco use: Plan: Previous heavy cigarette smoker. Current cigar use Smoking cessation encouraged Denies nicotine patch DVT Prophylaxis SCDs DNR/DNI Follows [place] [facility] for routine care Admission and Anticipated Discharge Date Admission Date: July 18, 2022 Subjective Patient seen and examined Reports nausea No vomiting since admission Drank most of his bowel prep. Stated his bowels are clear liquid Denied abd pain Reports chronic cough and dyspnea on exertion. Denied fevers, chills Physical Exam Constitutional: + thin; no acute distress Eyes: PERRL, conjunctivae normal, anicteric sclerae ENMT: external ear and nose normal, oropharynx normal Respiratory: normal respiratory effort, lungs clear to auscultation Cardiovascular: Rate/Rhythm: regular rate and regular rhythm S1 S2 Gastrointestinal (Abdomen): normal bowel sounds, soft, nontender, no hepatosplenomegaly Musculoskeletal: no cyanosis or clubbing, extremities motor strength 5/5 Neurologic: PERRL, EOMI, accommodation nl, no face palsy, no dysarthria Psychiatric: A+Ox3, euthymic affect Results & Data Results & Data ([facility]) Vital Signs (Past 12 Hours) Vital Signs Temp Pulse Pulse Resp BP Pulse Ox O2 Del Method 07/20/22 07:59 37.0 C 63 16 117/73 99 Room Air 07/20/22 07:21 67 07/20/22 03:20 36.5 C 80 18 101/65 100 Room Air 07/20/22 01:48 76 07/19/22 22:56 36.7 C 62 18 130/82 99 Room Air 07/19/22 22:10 Room Air Laboratory Results Abnormal lab results 07/19/22 07/20/22 07/20/22 Range/Units 06:46 06:22 06:22 WBC 3.32 L (4.8-10.8) K/ul RBC 2.79 L (4.63-6.08) M/uL Hgb 9.1 L (14.0-18.0) g/dl Hct 25.4 L (40.1-51.0) % RDW Std Deviation 48.6 H (36.4-46.3) fL Sodium 135 L (136-145) mmol/L Potassium 2.7 L (3.5-5.1) mmol/L BUN 2 L (6-23) mg/dl Creatinine 0.39 L (0.6-1.4) mg/dl BUN/Creatinine Ratio 5.1 L (10-20) Glucose 108 H (70-99(Fasting)) mg/dl Calcium 7.5 L (8.5-10.1) mg/dl Phosphorus 1.2 L* 2.2 L D (2.5-4.9) mg/dl Total Protein 4.8 L D (6.0-8.3) gm/dl Albumin 2.4 L (3.4-5.0) gm/dl (1) GI bleed GI bleed type/associated pathology: melena Qualified Code(s): K92.1 - Melena (2) Abdominal pain Abdominal location: epigastric Qualified Code(s): R10.13 - Epigastric pain (3) Anemia Anemia type: unspecified type Qualified Code(s): D64.9 - Anemia, unspecified
--- NOTE | 2022-07-20 09:57 | History & Physical Report ---
Date of Service July 20, 2022 Assessment & Plan (1) Anemia: Plan: EGD/colonoscopy (2) Severe protein-calorie malnutrition: (3) GI bleed: Admission and Anticipated Discharge Date Admission Date: July 18, 2022 History of Present Illness Chief Complaint: anemia melena family history Primary Care Provider: [facility] melena anemia family history Allergies Allergy/AdvReac Type Severity Reaction Status Date / Time No Known Allergies Allergy Verified 07/18/22 16:05 Home Medications Medication Instructions Recorded Confirmed Type cholecalciferol (vitamin D3) 25 25 mcg PO DAILY 07/18/22 07/18/22 History mcg (1,000 unit) capsule (Vitamin D3) Past Med/Surg History Medical History (Updated 07/19/22 @ 23:03 by Yonis Serrano MD) Tobacco use Vitamin D deficiency Surgical History (Updated 07/18/22 @ 17:35 by Aishwarya Razo PA-C) H/O: vasectomy History of colonoscopy History of elbow surgery Family History (Updated 07/18/22 @ 17:37 by Aishwarya Razo PA-C) Brother Heart disease Father Heart disease Other Breast cancer Social History (Updated 07/18/22 @ 17:35 by Aishwarya Razo PA-C) Smoking Status: Current some day smoker Tobacco Type: Cigars Cigarettes Per Day: 1-2 a day; Smoking End Date: smoked 1.5ppd x 40 years. Quit 10 years ago. Current smokes 1-2 cigars day; Second Hand Exposure: No; Do You Dip or Chew Tobacco: No; Hx Alcohol Use: Yes (2-3) Alcohol type: beer Alcohol Intake Frequency: 2-3 x/Week Hx Substance Use: Yes Non-Prescribed Medications: Marijuana Preferred Language: Greenlandic Communication Ability: Effective Airplane Fueler Required: No Beliefs That Will Affect Care: None Current Living Situation: Alone Feels Safe at Home: Yes Safety Concerns: Feels Safe At This Time Assistive Devices: Cane and Glasses Results & Data ([facility]) Vital Signs (Past 12 Hours) Vital Signs Temp Pulse Pulse Resp BP Pulse Ox O2 Del Method 07/20/22 07:59 37.0 C 63 16 117/73 99 Room Air 07/20/22 07:21 67 07/20/22 03:20 36.5 C 80 18 101/65 100 Room Air 07/20/22 01:48 76 07/19/22 22:56 36.7 C 62 18 130/82 99 Room Air 07/19/22 22:10 Room Air Code Status & VTE Plan VTE Prophylaxis Plan VTE Prophylaxis will be ordered: Yes (1) Anemia Anemia type: unspecified type Qualified Code(s): D64.9 - Anemia, unspecified (2) GI bleed GI bleed type/associated pathology: melena Qualified Code(s): K92.1 - Melena
--- NOTE | 2022-07-20 09:59 | Anesthesiology Consultation ---
Date of Service July 20, 2022 Assessment & Plan Chart Review Chart Review: Acceptable Risk for Surgery and Patient NOT seen in Pre Admission Testing Consults Requested none ASA ASA3 Proposed Anesthesia Anesthesia Type: MAC Risk / Benefits Reviewed With: PT / POA / Parent / Guardian and Informed Consent Obtained History Surgery Operation Date: 07/20/22 16:15 Proposed Procedures p Colonoscopy EGD Dr Gonzalez - Dorothea Gonzalez, DO Height/Weight Height: 5 ft 9 in Weight: 49.2 kg Allergies Allergy/AdvReac Type Severity Reaction Status Date / Time No Known Allergies Allergy Verified 07/18/22 16:05 Medications Home Medications Medication Instructions Recorded Confirmed Last Taken cholecalciferol (vitamin D3) 25 25 mcg PO DAILY 07/18/22 07/18/22 07/18/22 mcg (1,000 unit) capsule (Vitamin D3) Active Medications Generic Name Dose Route Start Last Admin Trade Name Freq PRN Reason Stop Dose Admin Folic Acid 1 mg 07/19/22 09:00 07/20/22 08:28 Folic Acid 1 Mg Tab PO 08/18/22 08:59 1 mg QAM ROCÍO Administration Pantoprazole Sodium 40 mg/ 100 mls @ 20 mls/hr 07/18/22 19:35 07/20/22 06:31 Dextrose IV 08/17/22 19:34 8 mg/hr Q5H ROCÍO 20 mls/hr Administration 8 MG/HR Ciprofloxacin 400 mg in 200 mls @ 100 mls/hr 07/19/22 16:00 07/20/22 06:41 Cipro / D5w IV 07/28/22 15:59 Infused Q12H ROCÍO Infusion Protocol Metronidazole 500 mg in 100 mls @ 100 mls/hr 07/19/22 14:00 07/20/22 08:07 Flagyl IV 07/29/22 13:59 Infused Q8 ROCÍO Infusion Protocol Vitamin D 1,000 units 07/19/22 09:00 07/20/22 08:28 Cholecalciferol 1,000 Units 25 Mcg Tab PO 08/18/22 08:59 1,000 units DAILY ROCÍO Administration NPO Date Last Intake of Fluids: 07/19/22 Time Last Intake of Fluids: 19:00 Past Medical History Medical History (Updated 07/19/22 @ 23:03 by Yonis Serrano MD) Tobacco use Vitamin D deficiency Exercise / Class Metabolic Activity III < 4 Walking/Shop/Light housework Past Family History Family History (Updated 07/18/22 @ 17:37 by Aishwarya Razo PA-C) Brother Heart disease Father Heart disease Other Breast cancer Past Surgical History Surgical History (Updated 07/18/22 @ 17:35 by Aishwarya Razo PA-C) H/O: vasectomy History of colonoscopy History of elbow surgery Past Anesthesia History No Hx of Anesthesia Complications and No Family Hx of Anesthesia Complications History of PONV No Hx of PONV and No Hx of Motion Sickness Social History Smoking Status: Current some day smoker tobacco type: cigars Smoking cigarettes per day: 1-2 a day Do You Dip or Chew Tobacco: No Smoking End Date: smoked 1.5ppd x 40 years. Quit 10 years ago. Current smokes 1- 2 cigars day Hx Alcohol Use: Yes (2-3) Alcohol type: beer alcohol intake frequency: a few times a week Hx Substance Use: Yes substance use type: marijuana Review of Systems ROS Unobtainable: All systems reviewed & are unremarkable except as noted in HPI & below Constitutional: as per Subjective / HPI Eyes: as per Subjective / HPI Ear, Nose, Mouth, Throat: as per Subjective / HPI Respiratory: as per Subjective / HPI Cardiovascular: as per Subjective / HPI Gastrointestinal: as per Subjective / HPI Genitourinary (Male): + as per Subjective / HPI Musculoskeletal: as per Subjective / HPI Integumentary: as per Subjective / HPI Neurologic: as per Subjective / HPI Psychiatric: as per Subjective / HPI Endocrine: as per Subjective / HPI Hematologic / Lymphatic: as per Subjective / HPI Allergy / Immunological: as per Subjective / HPI Physical Exam Vital Signs Last Vital Signs Temp 37.0 C 07/20/22 07:59 Pulse 63 07/20/22 07:59 Resp 16 07/20/22 07:59 BP 117/73 07/20/22 07:59 Pulse Ox 99 07/20/22 07:59 O2 Del Method 07/20/22 07:59 Constitutional WD/WN, vitals as above Eyes PERRL, conjunctivae normal, anicteric sclerae ENMT external ear and nose normal, oropharynx normal Mouth: no dentition abnormality Thyromental Distance: > or= 3.5 Finger Breadths Mallampati Class: II Neck trachea midline, no thyromegaly Respiratory normal respiratory effort, lungs clear to auscultation Auscultation: + wheezes scattered wheezes (greater expiratory) Cardiovascular RRR, no murmur, no edema Musculoskeletal Head/Neck/Chest: normocephalic and head atraumatic Spine: normal cervical ROM and no pain with cervical ROM Extremities: extremities normal to inspection and strength 5/5 throughout; full ROM of extremities Skin no rashes, warm and dry Neurologic moves all extremities Psychiatric A+Ox3, euthymic affect Testing Laboratory Results 07/20/22 06:22 07/20/22 06:22 PT 10.6 Seconds (9.0-12.0) 07/18/22 13:00 INR 1.0 (0.9-1.1) 07/18/22 13:00 APTT 31.1 Seconds (21.0-31.0) H 07/18/22 13:00 Urine Color Yellow 07/18/22 16:00 Urine Appearance Cloudy (Clear) A 07/18/22 16:00 Urine pH 6.5 (4.5-7.5) 07/18/22 16:00 Ur Specific [place] > 1.045 (1.000-1.030) H 07/18/22 16:00 Urine Protein 1+ (Negative) H 07/18/22 16:00 Urine Glucose (UA) Negative (Negative) 07/18/22 16:00 Urine Ketones 2+ (Negative) H 07/18/22 16:00 Urine Nitrite Negative (Negative) 07/18/22 16:00 Ur Leukocyte Esterase 1+ (Negative) H 07/18/22 16:00 Urine WBC (Auto) >30 /hpf (0-5) H 07/18/22 16:00 Urine RBC (Auto) 5-10 /hpf (0-4) H 07/18/22 16:00 U Hyaline Cast (Auto) 10-30 /lpf (0-5) H 07/18/22 16:00 U Epithel Cells (Auto) 10-20 /lpf (0-5) H 07/18/22 16:00 Urine Bacteria (Auto) 4+ (Negative) H 07/18/22 16:00 Blood Type O Positive 07/18/22 20:21 Antibody Screen NEGATIVE 07/18/22 20:21 07/18/22 16:00 Urine Culture - Preliminary Urine,Clean Catch Alpha strep. not enterococcus
[2022-07-20] MEDS ORDERED: POTASSIUM PHOSPHATE 30 MMOL in SODIUM CHLORIDE 0.9% 500 ML IV ONE (10:00)
[2022-07-20] MEDS ORDERED: MIDAZOLAM HCL 1 MG/ML 2ML VIAL ONE (10:13)
[2022-07-20] MEDS ORDERED: LIDOCAINE 2% MPF LOCAL 5 ML VIAL INFIL ONE (10:14)
[2022-07-20] MEDS ORDERED: ONDANSETRON INJ 2 MG/ML 2 ML VIAL ONE (10:14)
[2022-07-20] MEDS ORDERED: PROPOFOL IV EMULSION 10 MG/ML 20 ML VIAL IV ONE (10:14)
--- NOTE | 2022-07-20 10:56 | GI REPORT ---
Patient Name: Abhinav Baldwin Procedure Date: 07/20/2022 10:20 AM Date of : 1955 Admit Type: Inpatient Age: 66 Gender: Male Attending MD: Dorothea Gonzalez DO, Procedure: Upper GI endoscopy Providers: Dorothea Gonzalez DO Referring MD: Lily Mckeon Md Indications: Iron deficiency anemia, Melena, Weight loss Medicines: Propofol per Anesthesia Complications: No immediate complications. Estimated blood loss: Minimal. Estimated Blood Loss: Estimated blood loss was minimal. Procedure: Pre-Anesthesia Assessment: - Prior to the procedure, a History and Physical was performed, and patient medications, allergies and sensitivities were reviewed. The patient's tolerance of previous anesthesia was reviewed. - The risks and benefits of the procedure and the sedation options and risks were discussed with the patient. All questions were answered and informed consent was obtained. - Patient identification and proposed procedure were verified prior to the procedure by the physician and the nurse. The procedure was verified in the pre-procedure area in the procedure room. - Mental Status Examination: alert and oriented. Airway Examination: normal oropharyngeal airway and neck mobility. Respiratory Examination: clear to auscultation. CV Examination: normal. Abdominal Examination: bowel sounds present, abdomen soft and non-tender, no masses or organomegaly noted. - ASA Grade Assessment: III - A patient with severe systemic disease. After obtaining informed consent, the endoscope was passed under direct vision. Throughout the procedure, the patient's blood pressure, pulse, and oxygen saturations were monitored continuously. The Colonoscope was introduced through the mouth, and advanced to the third part of duodenum. The upper GI endoscopy was accomplished without difficulty. The patient tolerated the procedure well. Findings: There were esophageal mucosal changes consistent with long-segment Dooley's esophagus present in the lower third of the esophagus. A small hiatal hernia was present. Nodular mucosa was found in the entire duodenum. Biopsies for histology were taken with a cold forceps for evaluation of celiac disease. Verification of patient identification for the specimen was done by the physician and nurse using the patient's name and date. Estimated blood loss was minimal. Impression: - Esophageal mucosal changes consistent with long-segment Dooley's esophagus. Not biopsied today. - Small hiatal hernia. - Nodular mucosa in the entire examined duodenum. Biopsied. Recommendation: - Await pathology results. - Follow an antireflux regimen. - Use a proton pump inhibitor PO daily. - Repeat upper endoscopy in 1 year for surveillance and biopsy of Dooley's esophagus. - Perform a colonoscopy today. Dorothea Gonzalez D.O. Dorothea Gonzalez, 07/20/2022 10:56:39 AM This report has been signed electronically. Note Initiated On: 07/20/2022 10:20 AM Number of Addenda: 0 I attest to the content of the Intraoperative Record and orders documented therein, exceptions below {[id number]}
--- NOTE | 2022-07-20 11:02 | GI REPORT ---
Patient Name: Abhinav Baldwin Procedure Date: 07/20/2022 10:19 AM Date of : 1955 Admit Type: Inpatient Age: 66 Gender: Male Attending MD: Dorothea Gonzalez DO, Procedure: Colonoscopy Providers: Dorothea Gonzalez DO Referring MD: Lily Mckeon Md Indications: Last colonoscopy: 2000, Melena, Iron deficiency anemia, Family history of colon cancer in a first-degree relative before age 60 years Medicines: Propofol per Anesthesia Complications: No immediate complications. Estimated blood loss: None. Estimated Blood Loss: Estimated blood loss: none. Procedure: Pre-Anesthesia Assessment: - Prior to the procedure, a History and Physical was performed, and patient medications, allergies and sensitivities were reviewed. The patient's tolerance of previous anesthesia was reviewed. - The risks and benefits of the procedure and the sedation options and risks were discussed with the patient. All questions were answered and informed consent was obtained. - Patient identification and proposed procedure were verified prior to the procedure by the physician and the nurse. The procedure was verified in the pre-procedure area in the procedure room. - Mental Status Examination: alert and oriented. Airway Examination: normal oropharyngeal airway and neck mobility. Respiratory Examination: clear to auscultation. CV Examination: normal. Abdominal Examination: bowel sounds present, abdomen soft and non-tender, no masses or organomegaly noted. - ASA Grade Assessment: III - A patient with severe systemic disease. After I obtained informed consent, the scope was passed under direct vision. Throughout the procedure, the patient's blood pressure, pulse, and oxygen saturations were monitored continuously. The Colonoscope was introduced through the anus and advanced to the cecum, identified by appendiceal orifice and ileocecal valve. The colonoscopy was somewhat difficult due to a tortuous colon. Successful completion of the procedure was aided by using manual pressure and withdrawing the scope and replacing with the adult endoscope. The patient tolerated the procedure well. The quality of the bowel preparation was good. Findings: The perianal and digital rectal examinations were normal. Pertinent negatives include normal sphincter tone and no palpable rectal lesions. Multiple small and large-mouthed diverticula were found in the entire colon. The retroflexed view of the distal rectum and anal verge was normal and showed no anal or rectal abnormalities. Impression: - Diverticulosis in the entire examined colon. - Mild oozing of blood in the cecum with normal underlying mucosa. - The distal rectum and anal verge are normal on retroflexion view. - No specimens collected. Recommendation: - Return patient to hospital [facility] for ongoing care. - OK to advance diet. - Further work up per primary service. - REpeat colonoscopy in 2 years for screening. Dorothea Gonzalez D.O. Dorothea Gonzalez, 07/20/2022 11:02:17 AM This report has been signed electronically. Note Initiated On: 07/20/2022 10:19 AM Number of Addenda: 0 I attest to the content of the Intraoperative Record and orders documented therein, exceptions below {[id number]}
--- NOTE | 2022-07-20 13:06 | Anesthesiology Progress Note ---
Date of Service July 20, 2022 Anesthesia Post Procedure Vital Signs Vital Signs: Temp Pulse Pulse Resp BP BP Pulse Ox 07/20/22 11:36 77 18 133/70 100 07/20/22 11:13 74 18 118/79 100 07/20/22 10:58 84 18 111/81 100 07/20/22 09:52 36.3 C L 67 16 125/88 97 07/20/22 07:59 37.0 C 63 16 117/73 99 07/20/22 07:21 67 07/20/22 03:20 36.5 C 80 18 101/65 100 07/20/22 01:48 76 07/19/22 22:56 36.7 C 62 18 130/82 99 07/19/22 14:15 60 07/19/22 22:10 07/19/22 19:24 36.6 C 72 18 108/71 98 07/19/22 16:29 36.9 C 63 18 125/75 99 O2 Del Method O2 Flow Rate 07/20/22 11:36 Room Air 0 07/20/22 11:13 Room Air 0 07/20/22 10:58 Oxymask 5 07/20/22 09:52 Room Air 07/20/22 07:59 Room Air 07/20/22 07:21 07/20/22 03:20 Room Air 07/20/22 01:48 07/19/22 22:56 Room Air 07/19/22 14:15 07/19/22 22:10 Room Air 07/19/22 19:24 Room Air 07/19/22 16:29 Room Air Pain Intensity Abdomen: Pain Intensity: 0 Transfer of Care Handoff Completed per policy Notes Mental Status: alert / awake / arousable and participated in evaluation Patient Amnestic to Procedure: Yes Nausea / Vomiting: adequately controlled Pain: adequately controlled Airway Patency, RR, SpO2: stable & adequate BP & HR: stable & adequate Hydration State: stable & adequate Anesthetic Complications: no major complications apparent and Pt Satisfied with anesthetic care
[2022-07-20 13:30] LABS: Adenovirus F 40/41 PCR Not Detected (NotDetected); Astrovirus PCR Not Detected (NotDetected); Campylobacter PCR Not Detected (NotDetected); Cryptosporidium PCR Not Detected (NotDetected); Cyclospora cayetanensis PCR Not Detected (NotDetected); Entamoeba histolytica PCR Not Detected (NotDetected); Enteroaggregative E.coli(EAEC) Not Detected (NotDetected); Enteropathogenic E.coli (EPEC) Not Detected (NotDetected); Enterotoxigenic E.coli (ETEC) Not Detected (NotDetected); Giardia lamblia PCR Not Detected (NotDetected); Norovirus GI/GII PCR Not Detected (NotDetected); Plesiomonas shigelloides PCR Not Detected (NotDetected); Rotavirus A PCR Not Detected (NotDetected); Salmonella PCR Not Detected (NotDetected); Sapovirus PCR Not Detected (NotDetected); Shiga-like Toxin E.coli (STEC) Not Detected (NotDetected); Shigella/Enteroinvasive E.coli Not Detected (NotDetected); Vibrio cholerae PCR Not Detected (NotDetected); Vibrio species PCR Not Detected (NotDetected); Yersinia enterocolitica PCR Not Detected (NotDetected)
[2022-07-20] MEDS ORDERED: ARTIFICIAL TEARS OP PRN (18:12)
[2022-07-20] MEDS: ACETAMINOPHEN 325 MG TAB PO PRN (22:33)
[2022-07-21] MEDS: CIPROFLOXACIN / D5W 400 MG/200 ML BAG IV SCH (04:20)
[2022-07-21] MEDS: ACETAMINOPHEN 325 MG TAB PO PRN ×2 (04:36→20:37)
--- NOTE | 2022-07-21 05:38 | Electrocardiogram Report ---
Test Reason : Blood Pressure : / mmHG Vent. Rate : 078 BPM Atrial Rate : 078 BPM P-R Int : 122 ms QRS Dur : 084 ms QT Int : 428 ms P-R-T Axes : 072 084 082 degrees QTc Int : 487 ms Normal sinus rhythm Premature atrial complexes Prolonged QT Abnormal ECG No previous ECGs available Confirmed by Madhu Denise ([id number]) on 07/21/2022 5:38:12 AM Referred By: REFERRED SELF Confirmed By:Madhu Denise
[2022-07-21] MEDS: metroNIDAZOLE 500 MG/100 ML BAG IV SCH (06:05)
[2022-07-21] MEDS: FOLIC ACID 1 MG TAB PO SCH (08:32)
[2022-07-21] MEDS: PANTOprazole 40 MG TAB PO SCH (08:32)
[2022-07-21] MEDS: CHOLECALCIFEROL 1,000 UNITS 25 MCG TAB PO SCH (08:32)
[2022-07-21 08:35] LABS: Hemoglobin 9.4 g/dl (14.0-18.0); Mean Corpuscular Hemoglobin 32.8 pg (25.0-34.0); Mean Corpuscular Hgb Conc 34.8 g/dL (32.0-36.0); Mean Corpuscular Volume 94.1 fL (80.0-100.0); Mean Platelet Volume 10.1 fL (9.4-12.4); Platelet Count 194 K/uL (130-400); RDW Coefficient of Variation 14.7 % (11.5-14.5); RDW Standard Deviation 50.4 fL (36.4-46.3); Red Blood Count 2.87 M/uL (4.63-6.08)
[2022-07-21 09:00] LABS: BUN Creatinine Ratio 4.3 (10-20); Calcium 7.8 mg/dl (8.5-10.1); Creatinine Clr Calc Pharmacy 112.6 ml/min; Est GFR (African American) 134.5 ml/min; Magnesium 1.4 mg/dl (1.7-2.4); Potassium 3.7 mmol/L (3.5-5.1)
[2022-07-21] MEDS: MAGNESIUM SULFATE / D5W 1 GM/100 ML BAG IV SCH ×2 (09:50→12:19)
--- NOTE | 2022-07-21 10:00 | Hospitalist Progress Note ---
Date of Service July 21, 2022 Assessment & Plan (1) GI bleed: (2) Abdominal pain: (3) Anemia: Plan: 66-year-old male with PMH vitamin D deficiency, tobacco use presented to ER with complaint of melena x 6 months. Previously followed with MI clinic. Has not been seen for over 2 years. Patient reports having nausea, vomiting, dark stools for at least 6 months On admission, Hb was 12.2 (Per [facility] & P, Hgb: 15 in 2019 [facility] CT Abd/pelvis noted mild circumferential thickening throughout the majority of the colon, mild bladder wall thickening which could be chronic, colonic diverticulosis with no evidence for acute diverticulitis, multiple punctate bladder stones, hepatic steatosis and bilobed infrarenal abdominal aortic aneurysm measuring up to 4.2 cm in diameter. + Hemoccult in ER Possible colitis on CT. However, Colonoscopy noted diverticulosis, small oozing in caecum Stop cipro and flagyl EGD noted esophageal mucosal changes with long segment Dooley's and nodular mucosa in the entire examined duodenum that was biopsied Follow up pathology Continue PPI daily Will need repeat upper endoscopy in 1 yr for surveillance and biopsy of Barretts Will need Colonoscopy in 2 years (4) Severe protein-calorie malnutrition: Plan: Reported 30 pound weight loss in past several months CT Chest: Emphysema. There is no airspace consolidation or pleural effusion. No lymphadenopathy is identified. There is aneurysmal dilatation of the ascending thoracic aorta which measures up to 4.3 cm. Hepatic steatosis. Dietitian recs noted (5) UTI (urinary tract infection): Plan: On admission, patient reported dysuria and dark-colored urine UA suggestive of UTI. Urine cx growing alpha strep, not enterococcus Change to cefdinir to complete treatment Symptoms resolved (6) Hypokalemia: (7) Hypophosphatemia: (8) Hypomagnesemia: Plan: K is 3.7, phos is 3 today Mg is 1.4 Replete mag and monitor (9) Cough: Plan: Chronic cough and exertional dyspnea. History of tobacco use Likely underlying undiagnosed COPD CT chest with noted emphysema Albuterol nebs prn Had counselled patient to quit cigar smoking (10) Abnormal CT of the abdomen: Plan: CT abdomen pelvis: Bilobed infrarenal abdominal aortic aneurysm measuring up to 4.2 cm in diameter. Will need further outpatient follow-up (11) Tobacco use: Plan: Previous heavy cigarette smoker. Current cigar use Smoking cessation encouraged Denies nicotine patch Other notable findings Hepatitis C antibody is positive. He reported he was an IVDU (heroin) in 1970s when he quit. Patient likely has hepatitis C Hep C RNA ordered Patient needs to follow up with GI outpatient for further eval and management DVT Prophylaxis SCDs DNR/DNI Will set up PCP appointment for patient Plan to dc tomorrow AM Admission and Anticipated Discharge Date Admission Date: July 18, 2022 Subjective Patient seen and examined Reports nausea earlier today No vomiting Denied any abdomen pain. No diarrhea today Reports chronic cough. No shortness of breath today. Denied fevers, chills Denied dysuria, freq, urgency Physical Exam Constitutional: + thin; no acute distress Eyes: PERRL, conjunctivae normal, anicteric sclerae ENMT: external ear and nose normal, oropharynx normal Respiratory: normal respiratory effort, lungs clear to auscultation Cardiovascular: Rate/Rhythm: regular rate and regular rhythm S1 S2 Gastrointestinal (Abdomen): normal bowel sounds, soft, nontender, no hepatosplenomegaly Musculoskeletal: no cyanosis or clubbing, extremities motor strength 5/5 Neurologic: PERRL, EOMI, accommodation nl, no face palsy, no dysarthria Psychiatric: A+Ox3, euthymic affect Results & Data Results & Data ([facility] [place]) Vital Signs (Past 12 Hours) Vital Signs Temp Pulse Resp BP BP Pulse Ox O2 Del Method 07/21/22 07:23 36.9 C 58 L 16 107/65 99 Room Air 07/21/22 02:43 36.7 C 66 18 102/63 100 Room Air 07/21/22 00:06 Room Air 07/20/22 22:57 36.7 C 69 18 114/72 95 Room Air Laboratory Results Abnormal lab results 07/20/22 07/21/22 07/21/22 Range/Units 06:22 08:10 08:10 WBC 3.60 L (4.8-10.8) K/ul RBC 2.87 L (4.63-6.08) M/uL Hgb 9.4 L (14.0-18.0) g/dl Hct 27.0 L (40.1-51.0) % RDW Std Deviation 50.4 H (36.4-46.3) fL RDW Coeff of Breonna 14.7 H (11.5-14.5) % Sodium 133 L (136-145) mmol/L BUN 2 L (6-23) mg/dl Creatinine 0.46 L (0.6-1.4) mg/dl BUN/Creatinine Ratio 4.3 L (10-20) Calcium 7.8 L (8.5-10.1) mg/dl Magnesium 1.4 L (1.7-2.4) mg/dl Unsaturated IBC 90 L (155-355) mcg/dl (1) GI bleed GI bleed type/associated pathology: melena Qualified Code(s): K92.1 - Melena (2) Abdominal pain Abdominal location: epigastric Qualified Code(s): R10.13 - Epigastric pain (3) Anemia Anemia type: unspecified type Qualified Code(s): D64.9 - Anemia, unspecified
[2022-07-21] MEDS ORDERED: metroNIDAZOLE 500 MG TAB PO SCH (14:00)
[2022-07-21] MEDS ORDERED: CIPROFLOXACIN 500 MG TAB PO SCH (18:00)
[2022-07-21] MEDS: CEFDINIR 300 MG CAP PO SCH (20:33)
[2022-07-22 08:04] LABS: Hematocrit (blood only) 28.6 % (40.1-51.0); Mean Corpuscular Hemoglobin 32.5 pg (25.0-34.0); Mean Corpuscular Volume 92.9 fL (80.0-100.0); Mean Platelet Volume 10.4 fL (9.4-12.4); Platelet Count 252 K/uL (130-400); RDW Coefficient of Variation 15.2 % (11.5-14.5); RDW Standard Deviation 52.1 fL (36.4-46.3); Red Blood Count 3.08 M/uL (4.63-6.08); White Blood Count 4.07 K/ul (4.8-10.8)
[2022-07-22 08:45] LABS: Anion Gap 4 (3-11); Calcium 8.3 mg/dl (8.5-10.1); Carbon Dioxide 30 mmol/L (21-32); Chloride 104 mmol/L (98-107); Magnesium 1.8 mg/dl (1.7-2.4); Potassium 3.7 mmol/L (3.5-5.1); Sodium 138 mmol/L (136-145)
[2022-07-22 09:01] LABS: Blood Urea Nitrogen < 2 mg/dl (6-23); Creatinine Clr Calc Pharmacy 100.6 ml/min; Est GFR (African American) 128.9 ml/min; Est GFR (Non-African American) 111.2 ml/min; Glucose 84 mg/dl (70-99(Fasting)); Phosphorus 3.3 mg/dl (2.5-4.9)
--- NOTE | 2022-07-22 09:44 | Discharge Summary ---
Discharge Summary Date of Service July 22, 2022 Notes For Next Care Provider Follow up HCV RNA test pending Needs to follow up with [facility] Needs surveillance EGD in 1 year for Dooley's and Colonoscopy in 2 years Surveillance of abdominal aortic aneurysm Encourage cessation of cigar Medication Changes From Visit Pantoprazole po BID Folate, Vit B12 and ferrous sulphate for anemia Cefdinir to complete UTI treatment Admission HPI Per Admitting Provider Patient is 66-year-old male with PMH vitamin D deficiency, tobacco use presented to ER with complaint of melena x 6 months. Previously followed with [place] [facility]. Has not been seen for over 2 years. Patient reports having nausea and vomiting 1-2 times daily for the past 6 to 8 months. Reports intermittent loose bowel movements for several months. Describes stool coloration as dark black "like oil". Complains of mid and left-sided abdominal pain for the past 10 weeks. Not eating and drinking much. Has noticed losing weight and close fitting looser. Does not weigh himself regularly. He reports the last time he recalls being weighed he was approximately 140 pounds, is unsure how long ago that was. Patient reports has had exertional shortness of breath for the past 2 years. Reports chronic productive cough, unsure of sputum coloration. Reports 2 months ago was around someone that had URI symptoms and had contact with COVID-positive person. Patient states since that time he feels he has had increased cough and has noted it been green sputum. Patient never had COVID-19 test completed. States urine dark color and has some dysuria. Takes 200mg ibuprofen daily a few times a week. Previous cigarette smoker. 1.5 packs/day x 40 years. Quit smoking cigarettes 10 years ago. Smokes 1 to 2 cigars daily. Smokes marijuana daily. Drinks 2 to 3 cans of beer 1-2 times a week. Reports history of colonoscopy 15 to 20 years ago at [facility]. States polyps were found and removed and was told had hemorrhoids. Denies fever/chills, diaphoresis, hematemesis, hematochezia, TA, dizziness, syncope, vision changes, neck pain, CP, orthopnea, palpitations, hemoptysis, sore throat, choking, otalgia, rhinorrhea, paresthesias, extremity weakness, extremity edema, rashes. Admission Exam Per Admitting Provider General: no acute distress, chronic ill appearing, thin male, appears older than stated age Head: normocephalic, atraumatic Eyes: conjunctiva non-injected, anicteric ENT: normal inspection external ears, nose, mucous membranes mildly dry Neck: supple, trachea midline Lungs: +cough, no respiratory distress, +diminished breath sounds throughout no wheezing/rhonchi/rales CV: RRR, no murmur, no pretibial edema Abd: normal BS, soft, +tender to palpation periumbilical and LLQ without rebound or guarding Ext: no cyanosis, no calf tenderness Neuro: A&O x 3, no focal deficits noted, normal affect Skin: warm, dry Principal Dx & Hospital Course #1 = Principal Diagnosis (1) GI bleed: (2) Abdominal pain: (3) Anemia: 66-year-old male with PMH vitamin D deficiency, tobacco use presented to ER with complaint of melena x 6 months. Previously followed with [place] [facility]. Has not been seen for over 2 years. Patient reports having nausea, vomiting, dark stools for at least 6 months On admission, Hb was 12.2 (Per H & P, Hgb: 15 [facility] CT Abd/pelvis noted mild circumferential thickening throughout the majority of the colon, mild bladder wall thickening which could be chronic, colonic diverticulosis with no evidence for acute diverticulitis, multiple punctate bladder stones, hepatic steatosis and bilobed infrarenal abdominal aortic aneurysm measuring up to 4.2 cm in diameter. + Hemoccult in ER Possible colitis on CT. However, Colonoscopy noted diverticulosis, small oozing in caecum EGD noted esophageal mucosal changes with long segment Dooley's and nodular mucosa in the entire examined duodenum that was biopsied Pathology of duodenal biopsy was negative for dysplasia/malignancy/parasites Continue PPI daily Will need repeat upper endoscopy in 1 yr for surveillance and biopsy of Barretts Will need Colonoscopy in 2 years Patient's HCV antibody was positive (7.89) He reported he was an IVDU (heroin) in 1970s when he quit. Patient likely has hepatitis C Hep C RNA still pending Patient needs to follow up with GI outpatient for further eval and management (4) Severe protein-calorie malnutrition: Reported 30 pound weight loss in past several months CT Chest: Emphysema. There is no airspace consolidation or pleural effusion. No lymphadenopathy is identified. There is aneurysmal dilatation of the ascending thoracic aorta which measures up to 4.3 cm. Hepatic steatosis. Dietitian recs noted (5) UTI (urinary tract infection): On admission, patient reported dysuria and dark-colored urine UA suggestive of UTI. Urine cx growing alpha strep, not enterococcus Change to cefdinir to complete treatment Symptoms resolved (6) Hypokalemia: (7) Hypophosphatemia: (8) Hypomagnesemia: These were repleted and normalized prior to discharge (9) Cough: Chronic cough and exertional dyspnea. History of tobacco use Likely underlying undiagnosed COPD CT chest with noted emphysema Had counselled patient to quit cigar smoking (10) Abnormal CT of the abdomen: CT abdomen pelvis: Bilobed infrarenal abdominal aortic aneurysm measuring up to 4.2 cm in diameter. Will need further outpatient follow-up (11) Tobacco use: Previous heavy cigarette smoker. Current cigar use Smoking cessation encouraged Discharge Exam Constitutional + thin; no acute distress Eyes PERRL, conjunctivae normal, anicteric sclerae ENMT external ear and nose normal, oropharynx normal Respiratory normal respiratory effort, lungs clear to auscultation Cardiovascular Rate/Rhythm: regular rate and regular rhythm S1 S2 Gastrointestinal (Abdomen) normal bowel sounds, soft, nontender, no hepatosplenomegaly Musculoskeletal no cyanosis or clubbing, extremities motor strength 5/5 Neurologic PERRL, EOMI, accommodation nl, no face palsy, no dysarthria Psychiatric A+Ox3, euthymic affect Updated Medication List Medication Instructions Recorded Confirmed Type cholecalciferol (vitamin D3) 25 25 mcg PO DAILY 07/18/22 07/18/22 History mcg (1,000 unit) capsule (Vitamin D3) cefdinir 300 mg capsule 300 mg PO BID 6 days #12 caps 07/22/22 Rx cyanocobalamin (vitamin B-12) 1,000 mcg PO DAILY #30 caps 07/22/22 Rx 1,000 mcg capsule ferrous sulfate 325 mg (65 mg 325 mg PO DAILY #30 tabs 07/22/22 Rx iron) tablet (Feosol) folic acid 1 mg tablet 1 mg PO QAM 30 days #30 tabs 07/22/22 Rx pantoprazole 40 mg tablet,delayed 40 mg PO QAM 90 days #90 tabs 07/22/22 Rx release Hospital Stay Data Consultations 07/18/22 16:32 ED Decision to Admit Stat 07/19/22 08:00 Consult Gastroenterology Routine Procedures Performed Operation Date: 07/20/22 16:15 Actual Procedures p EGD Biopsy Cytology - Dorothea Gonzalez DO s Colonoscopy - Dorothea Gonzalez DO Diagnostic Imagining Performed 07/18/22 13:15 CT abd pelvis IV con only Stat There is calcified granuloma within the right middle lobe. No pneumoperitoneum. No pneumatosis. No fractures within the visualized osseous structures. Hepatic steatosis. The gallbladder, pancreas, and adrenal glands unremarkable. Multiple punctate calcified granuloma seen within the spleen. The kidneys enhance normally. No hydronephrosis. The main portal vein is patent. No retroperitoneal lymphadenopathy. Moderate calcified plaque within the aorta and iliac arteries. There is a bilobed infrarenal abdominal aortic aneurysm with a maximal diameter of 4.2 cm. Mild bladder wall thickening. The prostate gland is mildly enlarged. No pelvic lymphadenopathy or pelvic free fluid. Colonic diverticulosis. No evidence for acute diverticulitis. Questional mild circumferential thickening throughout the majority the colon. This could be due to underdistention versus a low-grade colitis. Multiple punctate bladder stones are noted. There is a small right posterior bladder diverticulum. IMPRESSION: 1. Mild circumferential thickening throughout the majority of the colon. This could be due to underdistention or a low-grade colitis. 2. Mild bladder wall thickening which could be chronic. Recommend correlation with urinalysis to exclude a cystitis. 3. Colonic diverticulosis. No evidence for acute diverticulitis. 4. Multiple punctate bladder stones. 5. Hepatic steatosis. 6. Bilobed infrarenal abdominal aortic aneurysm measuring up to 4.2 cm in diameter. 07/18/22 19:35 CT chest diagnostic wo con Urgent Thyroid: Normal in size and heterogeneous in attenuation. Thoracic aorta: There is atherosclerotic calcification of the thoracic aorta. There is mild aneurysmal dilatation of the ascending thoracic aorta which measures up to 4.3 cm. The remainder of the thoracic aorta is normal in caliber, and the arch demonstrates standard 3-vessel anatomy. Heart: The heart is normal in size and without pericardial effusion. The coronary arteries are densely calcified. Lungs and pleural spaces: There is moderate emphysema. No air space consolidation typical for pneumonia or pleural effusion is identified. There are scattered calcified granulomas. The trachea and central airways appear clear. Foci of parenchymal scarring are seen throughout both lungs. Dependent scarring/atelectasis is noted at the lung bases. Mediastinum: There are calcified mediastinal lymph nodes. No mediastinal adenopathy is seen. Lynnette: There are calcified hilar nodes. Note that the lynnette are not well assessed without IV contrast. Axillae: There is no axillary lymphadenopathy. Upper abdomen: The liver is steatotic. Excreted IV contrast is seen within the renal collecting systems. There are calcified splenic granulomas. Skeletal structures: The skeletal structures are osteopenic. No lytic or blastic bony lesions are seen. Soft tissues: The patient is cachectic. IMPRESSION: 1. Emphysema. 2. There is no airspace consolidation or pleural effusion. 3. No lymphadenopathy is identified. 4. There is aneurysmal dilatation of the ascending thoracic aorta which measures up to 4.3 cm. 5. Hepatic steatosis. 6. Additional findings as above. Pending Results Patient Have Any Pending Studies at Discharge: Yes Discharge Instructions Given to Patient (Per Discharging Provider) Mr Baldwin You came to the hospital complaining of dark stools, diarrhea, nausea, weight loss over the past couple of months. You were extensively evaluated and managed for the above listed diagnoses. You had upper endoscopy which showed Dooley's esophagus (change in mucous lining of the esophagus) and nodular lesion in your duodenum (small intestine, which was biopsied). You also had Colonoscopy which showed diverticulosis and some oozing of blood in a part of the large intestine. You were found to have positive antibodies to Hepatitis C, hence possible Hepatitis C infection. Please follow up results of Hepatitis C RNA to confirm this. You are being discharged on pantoprazole daily, folic acid, vitamin B12 and iron tablets. You are being discharged on cefdinir to complete antibiotic for urinary infection. Please ensure follow up with the new Primary Doctor set up for you. Please ensure follow up with Gastroenterology. You will need surveillance upper endoscopy in 1 year and colonoscopy in 2 years. Your Primary doctor will continue surveillance and monitoring of your aortic aneurysm (Dilated large blood vessel in your abdomen) It is extremely important you quit all forms of smoking. It was a pleasure taking care of you. Total Time Total Time Spent Total Time Spent (In Minutes): 60 Total Time Includes: Examination of the Patient, Discharge Planning and Medication Reconciliation
[2022-07-22] MEDS: ACETAMINOPHEN 325 MG TAB PO PRN (09:52)
[2022-07-22] MEDS: FOLIC ACID 1 MG TAB PO SCH (09:53)
[2022-07-22] MEDS: CEFDINIR 300 MG CAP PO SCH (09:53)
[2022-07-22] MEDS: PANTOprazole 40 MG TAB PO SCH (09:53)
[2022-07-22] MEDS: CHOLECALCIFEROL 1,000 UNITS 25 MCG TAB PO SCH (09:53)
[2022-07-24 13:37] LABS: Hepatitis C Vira RNA (Log) PCR <1.18 NOT DETECTED Log IU/mL (NOT DETECTED); Hepatitis C Viral RNA by PCR <15 NOT DETECTED IU/mL (NOT DETECTED)
== END 2022-07-22 13:45 | disposition home or self-care (01) | DRG 377 ==
LOC: ED 12:36 → SUATTDRO 16:24 → EDINP 16:24 → 2N 19:34
DX: E43 Unspecified severe protein-calorie malnutrition; J43.9 Emphysema, unspecified; E83.39 Other disorders of phosphorus metabolism; B19.20 Unspecified viral hepatitis C without hepatic coma; K22.70 Barrett's esophagus without dysplasia; K57.30 Diverticulosis of large intestine without perforation or abscess without bleeding; B95.0 Streptococcus, group A, as the cause of diseases classified elsewhere; Z66 Do not resuscitate; E87.6 Hypokalemia; R10.9 Unspecified abdominal pain; J44.9 Chronic obstructive pulmonary disease, unspecified; R63.4 Abnormal weight loss; I71.40 Abdominal aortic aneurysm, without rupture, unspecified; E83.42 Hypomagnesemia; F17.290 Nicotine dependence, other tobacco product, uncomplicated; N39.0 Urinary tract infection, site not specified; D64.9 Anemia, unspecified; K92.1 Melena